=== PATIENT | male | born 1955 | race Caucasian/White ===

== ENCOUNTER 2020-01-20 14:34 | Inpatient (IN) ==
[2020-01-20] MEDS ORDERED: ONDANSETRON INJ 2 MG/ML 2 ML VIAL IV PRN (15:18)
[2020-01-20] MEDS ORDERED: PATIENT'S HEIGHT AND/OR WEIGHT NEEDED SCH (15:30)
[2020-01-20 15:49] LABS: Basophils # (auto) 0.04 K/uL (0-0.2); Basophils % (auto) 0.6 %; Eosinophils # (auto) 0.08 K/uL (0-0.5); Eosinophils % (auto) 1.2 %; Hematocrit (blood only) 36.6 % (42-52); Immature Granulocytes # (auto) 0.01 K/uL (0.00-0.02); Immature Granulocytes % (auto) 0.2 %; Lymphocytes # (auto) 1.39 K/uL (1.2-3.4); Lymphocytes % (auto) 21.3 %; Mean Corpuscular Hemoglobin 31.7 pg (25-34); Mean Corpuscular Volume 96.8 fL (80-100); Mean Platelet Volume 10.2 fL (7.4-10.4); Monocytes # (auto) 0.55 K/uL (0.11-0.59); Monocytes % (auto) 8.4 %; Neutrophils # (auto) 4.45 K/uL (1.4-6.5); Neutrophils % (auto) 68.3 %; Platelet Count 224 K/uL (130-400); RDW Coefficient of Variation 14.5 % (11.5-14.5); RDW Standard Deviation 50.8 fL (36.4-46.3); Red Blood Count 3.78 M/uL (4.7-6.1); White Blood Count 6.52 K/uL (4.8-10.8)
[2020-01-20 15:50] LABS: Mean Corpuscular Hgb Conc 32.8 g/dL (32-36)
[2020-01-20 16:01] LABS: Partial Thromboplastin Ratio 0.8; Partial Thromboplastin Time 23.7 Seconds (21.0-31.0); Prothrombin Time 10.9 Seconds (9.0-12.0)
[2020-01-20 16:09] LABS: Alanine Aminotransferase 47 U/L (12-78); Aspartate Aminotransferase 49 U/L (15-37); BUN Creatinine Ratio 18.1 (10-20); Bilirubin Direct 0.2 mg/dl (0-0.2); Blood Urea Nitrogen 19 mg/dl (7-18); Calcium 9.4 mg/dl (8.5-10.1); Carbon Dioxide 24 mmol/L (21-32); Chloride 107 mmol/L (98-107); Est GFR (African American) 87.9; Est GFR (Non-African American) 75.9; Glucose 114 mg/dl (70-99); Potassium 4.5 mmol/L (3.5-5.1); Sodium 137 mmol/L (136-145)
[2020-01-20 16:12] LABS: Alkaline Phosphatase 92 U/L (45-117); Bilirubin,Total 0.7 mg/dl (0.2-1); Total Protein 7.3 gm/dl (6.4-8.2)
[2020-01-20] MEDS ORDERED: PNEUMOCOCCAL ADMINISTRATION CHARGE ONE (16:26)
[2020-01-20] MEDS ORDERED: PNEUMOCOCCAL POLYSACCHARIDES 25 MCG/0.5 ML VIAL/SYR IM ONE (16:26)
--- NOTE | 2020-01-20 17:35 | History & Physical Report ---
Date of Service January 20, 2020 Assessment & Plan (1) Abdominal lymphadenopathy: As discussed with Dr Peacock - CT C/A/P with IV contrast, possible need for biopsy as inpatient Unless anything emergent on this will defer further discussions to Dr Peacock in AM (2) Scrotal swelling: As discussed with Dr Peacock - recommended US testes to confirm edema and r/o alterative localized pathology. (3) Hypertension: Continue losartan 100mg daily, carvedilol 25mg PO daily, amlodipine 5mg PO daily (4) Ascending aortic aneurysm: Noted to be stable on scan in Sep as per patient (5) DVT prophylaxis: Lovenox 40mg SQ daily Admission and Anticipated Discharge Date Admission Date: January 20, 2020 History of Present Illness Chief Complaint: Direct admission for scrotal swelling Primary Care Provider: JAYCE Reece is a 64 year old male who presents as a direct admission from oncology clinic due to scrotal swelling and abdominal lymphadenopathy. The patient notes a 4 week history of change of bowel habit and abdominal cramps followed by 4 day history of scrotal and penile swelling without pain or change in urine frequency, nocturia, hematuria or dysuria. He had an outpatient CT which showed an enlarged abdominal mass ?lymph node (results not available at time of admission) and was referred to Dr Peacock for further management. Regarding his scrotal swelling he was seen in the ER on and since he already had a follow up with Dr Peacock at that time was just advised to follow up as previously planned. He followed up with Dr Peacock in clinic today and recommended admission for further workup. Patient otherwise feels ok but is very anxious. No fevers, chills, weight loss. Allergies Allergy/AdvReac Type Severity Reaction Status Date / Time No Known Allergies Allergy Unverified 01/16/20 13:19 Home Medications Home Medications Medication Instructions Recorded Confirmed Type amlodipine 5 mg PO DAILY 01/16/20 01/20/20 History carvedilol 25 mg PO DAILY 01/16/20 01/20/20 History ferrous sulfate [iron] 325 mg PO DAILY 01/16/20 01/20/20 History bmrht-tf-7-cqk-ano-idujnku-ast 1 cap PO DAILY 01/16/20 01/20/20 History [MegaRed [place]-3 Krill Oil] losartan 100 mg PO DAILY 01/16/20 01/20/20 History fcpxsgbblvuv-febfecud-cqcbhd 1 tab PO DAILY 01/16/20 01/20/20 History [Multivitamin 50 Plus] naproxen sodium [Aleve] 220 mg PO Q12H PRN 01/16/20 01/20/20 History Past Med/Surg History Medical History (Updated 01/20/20 @ 22:12 by Wolfgang Carney MD) Ascending aortic aneurysm Hypertension Surgical History (Updated 01/20/20 @ 16:06 by Alicia Lucero RN) History of total hip arthroplasty Right hip Family History (Updated 01/20/20 @ 16:07 by Alicia Lucero RN) Other No known health problems Social History Preferred Language: Ukrainian 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 Ability: Effective Seconds Inspector Required: No Beliefs That Will Affect Care: None Current Living Situation: Spouse Other Information That Helps Us Care for You: No Feels Safe at Home: Yes Safety Concerns: Feels Safe At This Time Smoking Status: Never smoker Do You Dip or Chew Tobacco: Yes ; Tobacco Cessation Education Requested by Patient: No Hx Alcohol Use: Yes Alcohol type: beer and hard liquor Hx Substance Use: Yes substance use type: marijuana Last Used Substance: Days (ago) Last Used Substance Other:: a week ago Review of Systems Review of Systems: All systems reviewed & are unremarkable except as noted in HPI & below Physical Exam Constitutional: WD/WN, vitals as above Eyes: PERRL, conjunctivae normal, anicteric sclerae ENMT: external ear and nose normal, oropharynx normal Neck: trachea midline, no thyromegaly Respiratory: normal respiratory effort, lungs clear to auscultation Cardiovascular: RRR, no murmur, no edema Gastrointestinal (Abdomen): normal bowel sounds, soft, nontender, no hepatosplenomegaly Musculoskeletal: no cyanosis or clubbing, extremities motor strength 5/5 Skin: no rashes, warm and dry Neurologic: moves all extremities and awake; no focal motor deficits and not confused Psychiatric: Orientation: alert and oriented x 3 Affect: + anxious affect Mood: + anxious mood Genitourinary: + scrotum abnormality (bilateral enlarged edematous scrotum) an d + edematous penis; no CVA tenderness Lymphatic: + inguinal lymphadenopathy; no cervical lymphadenopathy and no axillary lymphadenopathy Results & Data Results & Data ([facility]) Vital Signs (Past 12 Hours) Vital Signs Temp Pulse Resp BP Pulse Ox 01/20/20 15:41 36.5 C 73 16 153/94 H 96 Code Status & VTE Plan Code Status Full VTE Prophylaxis Plan VTE Prophylaxis will be ordered: Yes PG Care Time/CCT Total # of Minutes Spent Total Time Spent with Patient: Total time spent is greater than 50% in coordination of care (as documented) at patient's floor/unit and/or counseling p atient: Coding Level of Care Code 40747 Initial Inpt Care Lvl 2 Diagnoses Abdominal lymphadenopathy R59.0 Scrotal swelling N50.89 Hypertension I10 Ascending aortic aneurysm I71.2 DVT prophylaxis Z29.9
[2020-01-20] MEDS ORDERED: IOVERSOL 100ml IV PRN (17:49)
--- NOTE | 2020-01-20 18:24 | CT Scan Report ---
CHEST CT WITH CONTRAST, ABDOMEN AND PELVIS CT WITH CONTRAST CT DOSE: HISTORY: lymphadenopathy TECHNIQUE: Multiaxial CT images of the chest, abdomen, and pelvis were performed following the intrav enous administration of contrast. A dose lowering technique was utilized adhering to the principles of ALARA. COMPARISON: None. FINDINGS: Chest CT: There are prominent left axillary, anterior mediastinal, and bilateral hilar lymph nodes. T here is extensive posterior mediastinal lymphadenopathy seen predominantly within the periaortic loca tion. Dominant distal periaortic lymph node measures 2.6 cm. There is a large hiatus hernia containin g the majority of the stomach. Trace left pleural effusion. There is left-sided paravertebral lymphad enopathy. The heart is normal in size. Aneurysmal dilatation of the aortic root/ascending thoracic ao rta measuring up to 5 cm in diameter. No evidence for an aortic dissection. The central pulmonary art eries are patent. No suspicious lytic are blastic osseous lesions. No pneumothorax. The central airwa ys are patent. Linear densities within the base of the lower lobes, left greater the right. This favo rs subsegmental atelectasis. Abdomen/pelvis: The liver, gallbladder, pancreas, spleen, and adrenal glands are unremarkable. There is bulky retroperitoneal lymphadenopathy which extends into the mediastinum. This encases and anterio rly displaces the abdominal aorta. This appears to compress the IVC. This measures up to 12 x 10 cm i n diameter. There is mild bilateral pelvic sidewall lymphadenopathy. Mid pelvic lymphadenopathy with the largest lymph node measuring 8 x 4 cm. The bladder is not well-distended which likely accounts fo r the mild wall thickening. There is mild right and moderate left process likely secondary to obstruc tion from the bulky retroperitoneal lymphadenopathy. There is mild lower anterior abdominal wall subc utaneous edema mild mesenteric lymphadenopathy is also noted. There is also scrotal edema which is pa rtially visualized. Colonic diverticulosis. No evidence for diverticulitis. No bowel wall thickening or obstruction. Normal appendix. There is a right total hip arthroplasty. Sclerotic focus within the right posterior iliac bone favors a bone island. No suspicious lytic are blastic osseous lesions. IMPRESSION: 1. Extensive lymphadenopathy throughout the chest, abdomen, or pelvis as described above. This could represent lymphoma or metastatic disease. 2. Mild right and moderate left hydronephrosis secondary to obstruction of the ureters from the bulky retroperitoneal lymphadenopathy. 3. Large hiatus hernia. 4. Trace left pleural effusion. 5. Aneurysmal dilatation of the aortic root/ascending thoracic aorta measuring up to 5 cm. ACT 112: Positive. There are findings on this exam that require communication between the performing entity and the patient following Patient Test Result Information Act ([place] Act 112) guidelines. Electronically signed by: Cleveland Lui M.D. 01/20/2020 6:23 PM
--- NOTE | 2020-01-20 18:27 | Ultrasound Report ---
TESTICULAR ULTRASOUND HISTORY: bilateral scrotal swelling ?edema only COMPARISON: Abdomen and pelvis CT 01/20/2020. FINDINGS: Right testis: 4.8 x 3.6 x 3.8 cm. There are no intratesticular masses. Normal color flow. Moderate hy drocele. The epididymis is unremarkable. Left testis: 4.2 x 2.6 x 4.1 cm. There are no intratesticular masses. Normal color flow. Moderate hyd rocele containing a septation. The epididymis demonstrates a small cyst at the head. Miscellaneous: Moderate scrotal edema. IMPRESSION: 1. Normal bilateral testes. 2. Moderate scrotal edema with moderate bilateral hydroceles. ACT 112: Negative or not required by law. Electronically signed by: Cleveland Lui M.D. 01/20/2020 6:25 PM
[2020-01-20] MEDS ORDERED: PNEUMOCOCCAL Polysaccharide Vaccine 25mcg/0.5mL vial/Syr IM ONE (19:15)
[2020-01-20] MEDS ORDERED: ENOXAPARIN INJ 40 MG/0.4 ML SYR SQ SCH (21:00)
[2020-01-21] MEDS: LOSARTAN POTASSIUM 50 MG TAB PO SCH (07:45)
[2020-01-21] MEDS: carvediloL 25 MG TAB PO SCH (07:45)
[2020-01-21] MEDS: FERROUS SULFATE 325 MG TAB PO SCH (07:45)
[2020-01-21] MEDS: AMLODIPINE BESYLATE 5 MG TAB PO SCH (07:46)
--- NOTE | 2020-01-21 08:50 | Consultation Report ---
DATE OF CONSULTATION: 01/21/2020 REASON FOR CONSULTATION: Bulky abdominal lymphadenopathy, etiology unclear. HISTORY OF PRESENT ILLNESS: Lamberto is a very pleasant 64-year-old gentleman who actually presented to the [facility] yesterday for consultation regarding abnormal radiographic findings, specifically enlarging abdominal mass. Over the past 3-4 weeks, he had been experiencing increased abdominal cramps, pressure, early satiety and constipation. He denies fevers, chills or sweats, does not report a significant weight loss. He finally presented to his family physician a couple of weeks ago, performed preliminary CT scan of the abdomen and pelvis which clearly demonstrated relatively large retroperitoneal lymph node conglomerate. Shortly after scan he began to notice increased swelling of his lower extremities and scrotum. Thus, when he presented yesterday, he was in a fair amount of discomfort and felt it was prudent to proceed with admission for expedient workup and diagnosis. A CT scan of the chest, abdomen and pelvis was repeated in our facility. Radiologist identified extensive lymphadenopathy throughout the chest, abdomen and pelvis, thought to be consistent with a lymphoproliferative process, mild right and moderate left hydronephrosis, secondary to obstruction of the ureters from bulky retroperitoneal lymphadenopathy. Interestingly, aneurysm of the aortic root measuring up to 5 cm. The most significant lymph node bulk is seen in the retroperitoneum which extends into the mediastinum encases anterior displaces the abdominal aorta, appears to compress the IVC, which is not surprising I suspect resulting in scrotal and lower extremity swelling. This mass lesion measures 12 x 10 cm. The largest mid pelvic adenopathy measures 8 x 4 cm. PAST MEDICAL HISTORY: Significant for hypertension, ascending aortic aneurysm. PAST SURGICAL HISTORY: Status post total right hip arthroplasty. MEDICATIONS: Prior to admission include amlodipine 5 mg p.o. daily, carvedilol 25 mg p.o. daily, ferrous sulfate 325 mg p.o. daily, losartan 100 mg p.o. daily, multivitamin 1 tablet p.o. daily, Aleve 220 mg p.o. 12 hours p.r.n. ALLERGIES: No known drug allergies. 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 Positive for a beer and hard liquor. He also admits to marijuana use. FAMILY HISTORY: No family history of lymphoproliferative disease or neoplasia. REVIEW OF SYSTEMS: CONSTITUTIONAL: As per HPI, most notable for increased abdominal and upper pelvic pain and swelling of the scrotum, lower extremity. Negative for fevers, chills or night sweats. SKIN: No rashes or lesions. No history of dermatoses. HEENT: He denies headaches, lightheadedness or dizziness. No acute visual or hearing deficits. No sinus symptoms, sore throat or dysphagia. LYMPH: Positive for radiographically evident bulky adenopathy. CARDIAC: Negative for coronary artery disease, has a relatively large aortic root aneurysm, 5 cm are noted on CT of chest, no angina or palpitations. PULMONARY: Negative for COPD. No shortness of breath, dyspnea or orthopnea. No cough or hemoptysis. GASTROINTESTINAL: Negative for abdominal pain, nausea, vomiting, diarrhea, constipation, hematochezia or melena stools. GENITOURINARY: No hematuria, dysuria, urinary incontinence. PSYCHIATRIC: Negative for anxiety, depression or psychoses. ENDOCRINE: Negative for diabetes or thyroid disease. NEUROLOGIC: Negative for seizure, stroke, or migraine headache. HEMATOLOGIC: Positive for borderline normocytic normochromic anemia. PHYSICAL EXAMINATION: GENERAL: A very pleasant 64-year-old gentleman, awake, alert and appropriate, in no acute distress. VITAL SIGNS: Temperature 36.8, pulse 77, respiratory rate 20, blood pressure 128/80. SKIN: Warm, dry, noncyanotic without petechia, rash or ecchymosis. HEENT: Head is atraumatic, normocephalic. Eyes: PERRLA, EOMI. Sclerae nonicteric. No conjunctival injection. Nares are patent without rhinorrhea or discharge. Throat, no buccal lesions or ulcerations. Dentation in good repair. NECK: Supple without JVD or thyromegaly. LYMPH: No cervical, supraclavicular and I tried to palpate the left axillary node seen on CT scan, could not discern. HEART: Regular rate and rhythm. No clicks, rubs, murmurs or gallops. LUNGS: Clear to auscultation bilaterally. ABDOMEN: Soft, nontender, nondistended. Bowel sounds hypoactive. No rigidity or guarding, marked scrotal swelling. EXTREMITIES: 1+ peripheral edema bilateral lower extremities. Pulses and strength are otherwise equal. NEUROLOGICALLY: He is awake, alert and oriented x3. Cranial nerves grossly intact. LABORATORY DATA: WBC count 6520, hemoglobin 12, platelet count 224,000. PT 10.9 seconds, PTT 23.7 seconds. Sodium 137, potassium 4.5, chloride 107, carbon dioxide 24, creatinine 1.03, BUN 19, glucose 114, calcium 9.4, total bilirubin 0.7, direct bilirubin 0.2, AST mildly elevated at 49, ALT 47, albumin 4.0. IMPRESSION: 1. Diffuse/bulky abdominal lymphadenopathy (retroperitoneum). 2. Subacute onset of scrotal swelling. 3. Ascending aortic aneurysm. 4. Hypertension. PLAN: In summary, Mr. Reece is a pleasant 64-year-old gentleman who originally presented to [facility] yesterday with the above radiographic findings. Because of the COVID outbreak workup has been somewhat delayed and thus the rationale to hospitalize him. CT scan of the abdomen and pelvis repeated on admission shows bulky retroperitoneal lymphadenopathy compressing both the aorta and the inferior vena cava which I suspect resulted in scrotal and lower extremity swelling. Thus, we will ask general surgery to pursue tissue diagnosis expediently. I would also ask MediPort be placed in anticipation of chemotherapy to come once diagnosis is confirmed. Obviously, the most likely diagnosis is an underlying lymphoproliferative process. With significant bulky disease risk of tumor lysis is high. This gentleman is otherwise healthy and a good candidate to receive induction chemotherapy. If the preliminary diagnosis points to a lymphoproliferative process, may consider starting him on empiric corticosteroids in essence to reduce the bulkiness of his disease while he awaits chemotherapy. I have nothing further to add and will continue to follow him periodically during hospitalization. Thank you very much for assisting me in the care of this very pleasant gentleman.
--- NOTE | 2020-01-21 11:48 | Surgery Consultation ---
Date of Consultation January 21, 2020 Assessment & Plan (1) Abdominal lymphadenopathy: pt is a 64 year-old male who was admitted to hospital for lymphadenopathy. IMP: chest and abdominal lymphadenopathy Plan, I recommend to do laparoscopic biopsy abdominal lymph node, possible open, D/W benefits, risks and alternatives of the surgery, the risks - infection, bleeding, injury bowel, pt understood, he agrees with the surgery, I answered all questions, I will do port insertion once confirm diagnosis. History of Present Illness Attending Physician: Angel Jean MD History of Present Illness Chief Complaint: Direct admission for scrotal swelling Primary Care Provider: JAYCE Reece is a 64 year old male who presents as a direct admission from oncology clinic due to scrotal swelling and abdominal lymphadenopathy. The patient notes a 4 week history of change of bowel habit and abdominal cramps followed by 4 day history of scrotal and penile swelling without pain or change in urine frequency, nocturia, hematuria or dysuria. He had an outpatient CT which showed an enlarged abdominal mass ?lymph node (results not available at time of admission) and was referred to Dr Peacock for further management. Regarding his scrotal swelling he was seen in the ER on and since he already had a follow up with Dr Peacock at that time was just advised to follow up as previously planned. He followed up with Dr Peacock in clinic today and recommended admission for further workup. Patient otherwise feels ok but is very anxious. No fevers, chills, weight loss. I ( Santi Mac MD ) got a consult biopsy abdominal lymphadenopathy. I reviewed pt's H/P, labs, CT scan with pt, Allergies Allergy/AdvReac Type Severity Reaction Status Date / Time No Known Allergies Allergy Unverified 01/16/20 13:19 Home Medications Home Medications Medication Instructions Recorded Confirmed Type amlodipine 5 mg PO DAILY 01/16/20 01/20/20 History carvedilol 25 mg PO DAILY 01/16/20 01/20/20 History ferrous sulfate [iron] 325 mg PO DAILY 01/16/20 01/20/20 History hadcc-vg-7-hyu-xpw-ulntvem-ast 1 cap PO DAILY 01/16/20 01/20/20 History [MegaRed [place]-3 Krill Oil] losartan 100 mg PO DAILY 01/16/20 01/20/20 History ootqqszsyzmd-moqeohvu-rggehp 1 tab PO DAILY 01/16/20 01/20/20 History [Multivitamin 50 Plus] naproxen sodium [Aleve] 220 mg PO Q12H PRN 01/16/20 01/20/20 History Past Med/Surg History Medical History (Updated 01/20/20 @ 22:12 by Wolfgang Carney MD) Ascending aortic aneurysm Hypertension Surgical History (Updated 01/20/20 @ 16:06 by Alicia Lucero RN) History of total hip arthroplasty Right hip Family History (Updated 01/20/20 @ 16:07 by Alicia Lucero RN) Other No known health problems Social History Preferred Language: Iranian 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 Ability: Effective 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 Beliefs That Will Affect Care: None Current Living Situation: Spouse Other Information That Helps Us Care for You: No Feels Safe at Home: Yes Safety Concerns: Feels Safe At This Time Smoking Status: Never smoker Do You Dip or Chew Tobacco: Yes ; Tobacco Cessation Education Requested by Patient: No Hx Alcohol Use: Yes Alcohol type: beer and hard liquor Hx Substance Use: Yes substance use type: marijuana Last Used Substance: Days (ago) Last Used Substance Other:: a week ago Review of Systems Review of Systems: All systems reviewed & are unremarkable except as noted in HPI & below Allergies Allergy/AdvReac Type Severity Reaction Status Date / Time No Known Allergies Allergy Unverified 01/16/20 13:19 Home Medications Home Medications Medication Instructions Recorded Confirmed Type amlodipine 5 mg PO DAILY 01/16/20 01/20/20 History carvedilol 25 mg PO DAILY 01/16/20 01/20/20 History ferrous sulfate [iron] 325 mg PO DAILY 01/16/20 01/20/20 History xbtcx-sn-5-igu-xva-axlwozq-ast 1 cap PO DAILY 01/16/20 01/20/20 History [MegaRed [place]-3 Krill Oil] losartan 100 mg PO DAILY 01/16/20 01/20/20 History yxnfistuaspn-ullwxjez-hblxla 1 tab PO DAILY 01/16/20 01/20/20 History [Multivitamin 50 Plus] naproxen sodium [Aleve] 220 mg PO Q12H PRN 01/16/20 01/20/20 History Patient History Medical History (Updated 01/20/20 @ 22:12 by Wolfgang Carney MD) Ascending aortic aneurysm Hypertension Surgical History (Updated 01/20/20 @ 16:06 by Alicia Lucero RN) History of total hip arthroplasty Right hip Family History (Updated 01/20/20 @ 16:07 by Alicia Lucero RN) Other No known health problems Social History Preferred Language: Iranian 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 Ability: Effective 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 Beliefs That Will Affect Care: None marital status: Current Living Situation: Spouse Other Information That Helps Us Care for You: No Feels Safe at Home: Yes Safety Concerns: Feels Safe At This Time Smoking Status: Never smoker Do You Dip or Chew Tobacco: Yes ; Tobacco Cessation Education Requested by Patient: No Hx Alcohol Use: Yes Alcohol type: beer and hard liquor Hx Substance Use: Yes substance use type: marijuana Last Used Substance: Days (ago) Last Used Substance Other:: a week ago Review of Systems Review of Systems: All systems reviewed & are unremarkable except as noted in HPI & below Constitutional: as per Subjective / HPI Eyes: as per Subjective / HPI Ear, Nose, Mouth, Throat: as per Subjective / HPI Respiratory: as per Subjective / HPI Cardiovascular: Additional Comments: ascending aortic aneurysm Gastrointestinal: as per Subjective / HPI S/P bilt inguinal hernia repair Genitourinary: + problem reported (scrotal swelling) Musculoskeletal: as per Subjective / HPI Integumentary: as per Subjective / HPI Neurologic: as per Subjective / HPI Psychiatric: as per Subjective / HPI Endocrine: as per Subjective / HPI Hematologic / Lymphatic: as per Subjective / HPI Allergy / Immunological: as per Subjective / HPI Physical Exam Constitutional: WD/WN, vitals as above well developed and well nourished Eyes: PERRL, conjunctivae normal, anicteric sclerae ENMT: external ear and nose normal, oropharynx normal Neck: trachea midline, no thyromegaly Respiratory: normal respiratory effort, lungs clear to auscultation normal respiratory effort Cardiovascular: RRR, no murmur, no edema Rate/Rhythm: regular rate and regular rhythm Gastrointestinal (Abdomen): normal bowel sounds, soft, nontender, no hepatosplenomegaly Percussion/Palpation: abdomen soft Musculoskeletal: no cyanosis or clubbing, extremities motor strength 5/5 Skin: no rashes, warm and dry Neurologic: patellar DTR's 2+ bilat, sensation intact Psychiatric: Orientation: alert and oriented x 3 Lymphatic: no palpable mass on bilt axillary and inguinal areas, Results & Data Vital Signs (Past 12 Hours) Vital Signs Temp Pulse Resp BP Pulse Ox 01/21/20 04:00 36.8 C 77 20 128/80 94 Laboratory Results Abnormal lab results 01/20/20 01/20/20 Range/Units 15:35 15:35 RBC 3.78 L (4.7-6.1) M/uL Hgb 12.0 L (14.0-18.0) g/dL Hct 36.6 L (42-52) % RDW Std Deviation 50.8 H (36.4-46.3) fL BUN 19 H (7-18) mg/dl Glucose 114 H (70-99) mg/dl AST 49 H (15-37) U/L Diagnostic Findings CHEST CT WITH CONTRAST, ABDOMEN AND PELVIS CT WITH CONTRAST CT DOSE: HISTORY: lymphadenopathy TECHNIQUE: Multiaxial CT images of the chest, abdomen, and pelvis were performed following the intravenous administration of contrast. A dose lowering technique was utilized adhering to the principles of ALARA. COMPARISON: None. FINDINGS: Chest CT: There are prominent left axillary, anterior mediastinal, and bilateral hilar lymph nodes. There is extensive posterior mediastinal lymphadenopathy seen predominantly within the periaortic location. Dominant distal periaortic lymph node measures 2.6 cm. There is a large hiatus hernia containing the majority of the stomach. Trace left pleural effusion. There is left-sided paravertebral lymphadenopathy. The heart is normal in size. Aneurysmal dilatation of the aortic root/ascending thoracic aorta measuring up to 5 cm in diameter. No evidence for an aortic dissection. The central pulmonary arteries are patent. No suspicious lytic are blastic osseous lesions. No pneumothorax. The central airways are patent. Linear densities within the base of the lower lobes, left greater the right. This favors subsegmental atelectasis. Abdomen/pelvis: The liver, gallbladder, pancreas, spleen, and adrenal glands are unremarkable. There is bulky retroperitoneal lymphadenopathy which extends into the mediastinum. This encases and anteriorly displaces the abdominal aorta. This appears to compress the IVC. This measures up to 12 x 10 cm in diameter. There is mild bilateral pelvic sidewall lymphadenopathy. Mid pelvic lymphadenopathy with the largest lymph node measuring 8 x 4 cm. The bladder is not well-distended which likely accounts for the mild wall thickening. There is mild right and moderate left process likely secondary to obstruction from the bulky retroperitoneal lymphadenopathy. There is mild lower anterior abdominal wall subcutaneous edema mild mesenteric lymphadenopathy is also noted. There is also scrotal edema which is partially visualized. Colonic diverticulosis. No evidence for diverticulitis. No bowel wall thickening or obstruction. Normal appendix. There is a right total hip arthroplasty. Sclerotic focus within the right posterior iliac bone favors a bone island. No suspicious lytic are blastic osseous lesions. IMPRESSION: 1. Extensive lymphadenopathy throughout the chest, abdomen, or pelvis as described above. This could represent lymphoma or metastatic disease. 2. Mild right and moderate left hydronephrosis secondary to obstruction of the ureters from the bulky retroperitoneal lymphadenopathy. 3. Large hiatus hernia. 4. Trace left pleural effusion. 5. Aneurysmal dilatation of the aortic root/ascending thoracic aorta measuring up to [address] WITH CONTRAST, ABDOMEN AND PELVIS CT WITH CONTRAST CT DOSE: HISTORY: lymphadenopathy TECHNIQUE: Multiaxial CT images of the chest, abdomen, and pelvis were performed following the intravenous administration of contrast. A dose lowering technique was utilized adhering to the principles of ALARA. COMPARISON: None. FINDINGS: Chest CT: There are prominent left axillary, anterior mediastinal, and bilateral hilar lymph nodes. There is extensive posterior mediastinal lymphadenopathy seen predominantly within the periaortic location. Dominant distal periaortic lymph node measures 2.6 cm. There is a large hiatus hernia containing the majority of the stomach. Trace left pleural effusion. There is left-sided paravertebral lymphadenopathy. The heart is normal in size. Aneurysmal dilatation of the aortic root/ascending thoracic aorta measuring up to 5 cm in diameter. No evidence for an aortic dissection. The central pulmonary arteries are patent. No suspicious lytic are blastic osseous lesions. No pneumothorax. The central airways are patent. Linear densities within the base of the lower lobes, left greater the right. This favors subsegmental atelectasis. Abdomen/pelvis: The liver, gallbladder, pancreas, spleen, and adrenal glands are unremarkable. There is bulky retroperitoneal lymphadenopathy which extends into the mediastinum. This encases and anteriorly displaces the abdominal aorta. This appears to compress the IVC. This measures up to 12 x 10 cm in diameter. There is mild bilateral pelvic sidewall lymphadenopathy. Mid pelvic lymphadenopathy with the largest lymph node measuring 8 x 4 cm. The bladder is not well-distended which likely accounts for the mild wall thickening. There is mild right and moderate left process likely secondary to obstruction from the bulky retroperitoneal lymphadenopathy. There is mild lower anterior abdominal wall subcutaneous edema mild mesenteric lymphadenopathy is also noted. There is also scrotal edema which is partially visualized. Colonic diverticulosis. No evidence for diverticulitis. No bowel wall thickening or obstruction. Normal appendix. There is a right total hip arthroplasty. Sclerotic focus within the right posterior iliac bone favors a bone island. No suspicious lytic are blastic osseous lesions.
[2020-01-21] MEDS: POLYETHYLENE (MIRALAX) 17 GM PACK PO PRN (12:13)
[2020-01-21] MEDS: LORazepam 0.5 MG TAB PO PRN ×2 (12:13→20:17)
--- NOTE | 2020-01-21 15:23 | Urology Consultation ---
Date of Consultation January 21, 2020 Assessment & Plan (1) Scrotal swelling: elevate scrotum (2) Hydronephrosis: call for severe flank pain or renal failure History of Present Illness Attending Physician: Angel Jean MD History of Present Illness 64 yo male w hx of r inguinal swelling who saw family doctor and he had a ct that showed a large abdominal adenopathy w scrotal swelling and mild bilateral hydro . Pt with nl creatinine and no difficulty voiding. he developed scrotal swelling which is better today . No pain . Surgery pending for tissue biopsy in am . Psa reported nl this year per patient . Prostate feels nl on exam today . Scrotal sonogram showed edema of scrotal wall and small hydroceles w nl testes . Reassured pt swelling secondary to abdominal mass and no indication for stents unless creatinine rises or he develops flank pain. Allergies Allergy/AdvReac Type Severity Reaction Status Date / Time No Known Allergies Allergy Unverified 01/16/20 13:19 Home Medications Home Medications Medication Instructions Recorded Confirmed Type amlodipine 5 mg PO DAILY 01/16/20 01/20/20 History carvedilol 25 mg PO DAILY 01/16/20 01/20/20 History ferrous sulfate [iron] 325 mg PO DAILY 01/16/20 01/20/20 History szaei-ir-0-wwt-bio-ybclacb-ast 1 cap PO DAILY 01/16/20 01/20/20 History [MegaRed [place]-3 Krill Oil] losartan 100 mg PO DAILY 01/16/20 01/20/20 History cptexcembsnd-ulnyrern-hgyqgn 1 tab PO DAILY 01/16/20 01/20/20 History [Multivitamin 50 Plus] naproxen sodium [Aleve] 220 mg PO Q12H PRN 01/16/20 01/20/20 History Patient History Medical History (Updated 01/21/20 @ 15:22 by Andrez Phelps MD) Ascending aortic aneurysm Hypertension Surgical History (Updated 01/20/20 @ 16:06 by Alicia Lucero RN) History of total hip arthroplasty Right hip Family History (Updated 01/20/20 @ 16:07 by Alicia Lucero RN) Other No known health problems Social History Preferred Language: [place] 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 Ability: Effective 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 Beliefs That Will Affect Care: None marital status: Current Living Situation: Spouse Other Information That Helps Us Care for You: No Feels Safe at Home: Yes Safety Concerns: Feels Safe At This Time Smoking Status: Never smoker Do You Dip or Chew Tobacco: Yes ; Tobacco Cessation Education Requested by Patient: No Hx Alcohol Use: Yes Alcohol type: beer and hard liquor Hx Substance Use: Yes substance use type: marijuana Last Used Substance: Days (ago) Last Used Substance Other:: a week ago Review of Systems Constitutional: as per Subjective / HPI Eyes: as per Subjective / HPI Ear, Nose, Mouth, Throat: as per Subjective / HPI Respiratory: as per Subjective / HPI Cardiovascular: Additional Comments: ascending aortic aneurysm Gastrointestinal: as per Subjective / HPI S/P bilt inguinal hernia repair Genitourinary: + problem reported (scrotal swelling) Musculoskeletal: as per Subjective / HPI Integumentary: as per Subjective / HPI Neurologic: as per Subjective / HPI Psychiatric: as per Subjective / HPI Endocrine: as per Subjective / HPI Hematologic / Lymphatic: as per Subjective / HPI Allergy / Immunological: as per Subjective / HPI Physical Exam Constitutional: WD/WN, vitals as above well developed and well nourished Eyes: PERRL, conjunctivae normal, anicteric sclerae ENMT: external ear and nose normal, oropharynx normal Neck: trachea midline, no thyromegaly Genitourinary: + scrotum abnormality (bilateral enlarged edematous scrotum) and + edematous penis; no CVA tenderness Lymphatic: + inguinal lymphadenopathy; no cervical lymphadenopathy and no axillary lymphadenopathy Results & Data Vital Signs (Past 12 Hours) Vital Signs Temp Pulse Resp BP Pulse Ox 01/21/20 12:13 36.8 C 72 18 148/90 H 92 01/21/20 04:00 36.8 C 77 20 128/80 94 PG Care Time/CCT Total # of Minutes Spent Total Time Spent with Patient: Total time spent is greater than 50% in coordination of care (as documented) at patient's floor/unit and/or counseling patient: Coding Level of Care Code 73250 Inpt Consult Level 2 Diagnoses Scrotal swelling N50.89 Hydronephrosis N13.30
--- NOTE | 2020-01-21 16:32 | Anesthesiology Consultation ---
Date of Service January 21, 2020 Assessment & Plan (1) Encounter for pre-operative examination: Chart Review Chart Review: Acceptable Risk for Surgery and Patient NOT seen in Pre Admission Testing Will order ECG. Plan for GETA +/- arterial line. Consults Requested none History Surgery Operation Date: 01/22/20 09:40 Proposed Procedures p Laparoscopic Abdominal Lymph Node Biopsy - Santi Mac MD Height/Weight Height: 6 ft Weight: 93.8 kg Allergies Allergy/AdvReac Type Severity Reaction Status Date / Time No Known Allergies Allergy Unverified 01/16/20 13:19 Medications Home Medications Medication Instructions Recorded Confirmed Last Taken amlodipine 5 mg PO DAILY 01/16/20 01/20/20 01/20/20 carvedilol 25 mg PO DAILY 01/16/20 01/20/20 01/20/20 ferrous sulfate [iron] 325 mg PO DAILY 01/16/20 01/20/20 01/20/20 swtja-hs-7-cdo-paj-fnpprgw-ast 1 cap PO DAILY 01/16/20 01/20/20 01/20/20 [MegaRed [place]-3 Krill Oil] losartan 100 mg PO DAILY 01/16/20 01/20/20 01/20/20 qfgzbqiztiiv-hkhyfmhl-ezpata 1 tab PO DAILY 01/16/20 01/20/20 01/20/20 [Multivitamin 50 Plus] naproxen sodium [Aleve] 220 mg PO Q12H PRN 01/16/20 01/20/20 1 Day Ago ~01/19/20 Active Medications Generic Name Dose Route Start Last Admin Trade Name Freq PRN Reason Stop Dose Admin Amlodipine Besylate 5 mg 01/21/20 09:00 01/21/20 07:46 Norvasc PO 02/20/20 08:59 5 mg DAILY KATLYN Administration Carvedilol 25 mg 01/21/20 09:00 01/21/20 07:45 Coreg PO 02/20/20 08:59 25 mg DAILY KATLYN Administration Enoxaparin Sodium 40 mg 01/20/20 21:00 01/20/20 21:07 Lovenox SQ 02/19/20 20:59 40 mg Q24H KATLYN Administration Ferrous Sulfate 325 mg 01/21/20 09:00 01/21/20 07:45 Feosol PO 02/20/20 08:59 325 mg DAILY KATLYN Administration Ioversol 94 ml 01/20/20 17:49 01/20/20 17:50 Optiray 320 100ml IV 01/24/20 17:48 94 ml ONCE PRN Administration Interaction Checking Lorazepam 0.5 mg 01/21/20 11:01 01/21/20 12:13 Ativan PO 02/20/20 11:00 0.5 mg TID PRN Administration Anxiety Losartan Potassium 100 mg 01/21/20 09:00 01/21/20 07:45 Cozaar PO 02/20/20 08:59 100 mg DAILY KATLYN Administration Ondansetron HCl 4 mg 01/20/20 15:18 01/20/20 18:49 Zofran IV 02/19/20 15:17 4 mg Q6H PRN Administration Nausea Polyethylene Glycol 17 gm 01/20/20 15:18 01/21/20 12:13 Miralax Powder Packet PO 02/19/20 15:17 17 gm DAILY PRN Administration Constipation Past Medical History Medical History (Updated 01/21/20 @ 16:36 by Hollis Herman MD) Abdominal lymphadenopathy (Inactive) Anemia (Inactive) Ascending aortic aneurysm Hydronephrosis Hypertension He does have a history of a thoracic aortic aneurysm and had a CT scan in August of this year which showed no change. Past Family History Family History Other No known health problems Past Surgical History Surgical History History of total hip arthroplasty Right hip Social History Smoking Status: Never smoker Do You Dip or Chew Tobacco: Yes Hx Alcohol Use: Yes Alcohol type: beer and hard liquor alcohol intake frequency: 3 or more drinks per day Alcohol Intake Frequency Comment: 3 shots of bourbon and a beer a day Hx Substance Use: Yes substance use type: marijuana Last Used Substance: Days (ago) Last Used Substance Other:: a week ago Physical Exam Vital Signs Last Vital Signs Temp 36.6 C 01/21/20 15:00 Pulse 74 01/21/20 15:00 Resp 18 01/21/20 15:00 BP 127/73 01/21/20 15:00 Pulse Ox 93 01/21/20 15:00 Testing Laboratory Results 01/20/20 15:35 01/20/20 15:35 PT 10.9 Seconds (9.0-12.0) 01/20/20 15:35 INR 1.0 (0.9-1.1) 01/20/20 15:35 APTT 23.7 Seconds (21.0-31.0) 01/20/20 15:35 Other Testing 01/20/2020: CHEST CT WITH CONTRAST, ABDOMEN AND PELVIS CT WITH CONTRAST CT DOSE: HISTORY: lymphadenopathy TECHNIQUE: Multiaxial CT images of the chest, abdomen, and pelvis were performed following the intravenous administration of contrast. A dose lowering technique was utilized adhering to the principles of ALARA. COMPARISON: None. FINDINGS: Chest CT: There are prominent left axillary, anterior mediastinal, and bilateral hilar lymph nodes. There is extensive posterior mediastinal lymphadenopathy seen predominantly within the periaortic location. Dominant distal periaortic lymph node measures 2.6 cm. There is a large hiatus hernia containing the majority of the stomach. Trace left pleural effusion. There is left-sided paravertebral lymphadenopathy. The heart is normal in size. Aneurysmal dilatation of the aortic root/ascending thoracic aorta measuring up to 5 cm in diameter. No evidence for an aortic dissection. The central pulmonary arteries are patent. No suspicious lytic are blastic osseous lesions. No pneumothorax. The central airways are patent. Linear densities within the base of the lower lobes, left greater the right. This favors subsegmental atelectasis. Abdomen/pelvis: The liver, gallbladder, pancreas, spleen, and adrenal glands are unremarkable. There is bulky retroperitoneal lymphadenopathy which extends into the mediastinum. This encases and anteriorly displaces the abdominal aorta. This appears to compress the IVC. This measures up to 12 x 10 cm in diameter. There is mild bilateral pelvic sidewall lymphadenopathy. Mid pelvic lymphadenopathy with the largest lymph node measuring 8 x 4 cm. The bladder is not well-distended which likely accounts for the mild wall thickening. There is mild right and moderate left process likely secondary to obstruction from the bulky retroperitoneal lymphadenopathy. There is mild lower anterior abdominal wall subcutaneous edema mild mesenteric lymphadenopathy is also noted. There is also scrotal edema which is partially visualized. Colonic diverticulosis. No evidence for diverticulitis. No bowel wall thickening or obstruction. Normal appendix. There is a right total hip arthroplasty. Sclerotic focus within the right posterior iliac bone favors a bone island. No suspicious lytic are blastic osseous lesions. IMPRESSION: 1. Extensive lymphadenopathy throughout the chest, abdomen, or pelvis as described above. This could represent lymphoma or metastatic disease. 2. Mild right and moderate left hydronephrosis secondary to obstruction of the ureters from the bulky retroperitoneal lymphadenopathy. 3. Large hiatus hernia. 4. Trace left pleural effusion. 5. Aneurysmal dilatation of the aortic root/ascending thoracic aorta measuring up to 5 cm.
--- NOTE | 2020-01-21 16:51 | Hospitalist Progress Note ---
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 Discussed with Dr. Peacock on 01/20. - Plan for biopsy of retroperitoneal mass tomorrow with Dr. Mac. - NPO @ midnight (2) Scrotal swelling: For scrotal swelling, urology recommends to elevate scrotum. Will not pursue further intervention unless kidney function changes. (3) Hypertension: BP 130/75 today. - Continue losartan 100mg daily, carvedilol 25mg PO daily, amlodipine 5mg PO daily (4) Anxiety: Patient quite anxious. Will consider starting SSRI in near future. - For now, will just go with PRN Ativan. (5) Ascending aortic aneurysm: Noted to be stable on scan in Sep as per patient (6) DVT prophylaxis: SCDs - Holding heparin for procedure Admission and Anticipated Discharge Date Admission Date: January 20, 2020 Subjective Doing well today. Anxious. Awaiting biopsy for tomorrow. Reports no fevers/chills, chest pain, shortness of breath, abdominal pain, nausea, or vomiting. Physical Exam Constitutional: WD/WN, vitals as above Eyes: EOM intact bilaterally; no conjunctival abnormality ENMT: external ear and nose normal, oropharynx normal Neck: trachea midline, no thyromegaly normal visual inspection Respiratory: normal respiratory effort, lungs clear to auscultation no respiratory distress Cardiovascular: RRR, no murmur, no edema Gastrointestinal (Abdomen): Inspection/Auscultation: abdomen normal to inspection; abdomen not distended Musculoskeletal: no cyanosis or clubbing, extremities motor strength 5/5 Skin: no rashes, warm and dry Neurologic: moves all extremities and awake Psychiatric: Orientation: alert, oriented to person and cooperative Results & Data Results & Data ([facility]) Vital Signs (Past 12 Hours) Vital Signs Temp Pulse Resp BP BP Pulse Ox 01/21/20 15:00 36.6 C 74 18 127/73 93 01/21/20 12:13 36.8 C 72 18 148/90 H 92 PG Care Time/CCT Total # of Minutes Spent Total Time Spent with Patient: Total time spent is greater than 50% in coordination of care (as documented) at patient's floor/unit and/or counseling patient: Coding Level of Care Code 87133 Subseq Hosp Care Lvl 3 Diagnoses Abdominal lymphadenopathy R59.0 Scrotal swelling N50.89 Hypertension I10 Anxiety F41.9 Ascending aortic aneurysm I71.2 DVT prophylaxis Z29.9
[2020-01-22] MEDS: SODIUM CHLORIDE 0.45 % 1,000 ML IV SCH ×2 (04:10→23:10)
[2020-01-22] MEDS ORDERED: CEFAZOLIN 2000MG 2,000 MG/15 ML SYR IV SCH (06:00)
[2020-01-22 08:05] LABS: Hematocrit (blood only) 35.7 % (42-52); Hemoglobin 11.3 g/dL (14.0-18.0); Mean Corpuscular Hemoglobin 30.9 pg (25-34); Mean Corpuscular Hgb Conc 31.7 g/dL (32-36); Mean Corpuscular Volume 97.5 fL (80-100); Mean Platelet Volume 10.4 fL (7.4-10.4); Platelet Count 227 K/uL (130-400); RDW Coefficient of Variation 14.4 % (11.5-14.5); RDW Standard Deviation 51.1 fL (36.4-46.3); Red Blood Count 3.66 M/uL (4.7-6.1); White Blood Count 5.02 K/uL (4.8-10.8)
[2020-01-22 08:20] LABS: INR 1.1 (0.9-1.1); Prothrombin Time 11.3 Seconds (9.0-12.0)
[2020-01-22] MEDS: AMLODIPINE BESYLATE 5 MG TAB PO SCH (08:21)
[2020-01-22] MEDS: carvediloL 25 MG TAB PO SCH (08:21)
[2020-01-22] MEDS: FERROUS SULFATE 325 MG TAB PO SCH (08:21)
[2020-01-22] MEDS: LOSARTAN POTASSIUM 50 MG TAB PO SCH (08:21)
[2020-01-22 08:23] LABS: BUN Creatinine Ratio 13.4 (10-20); Calcium 8.9 mg/dl (8.5-10.1); Creatinine Clr Calc Pharmacy 73.5 ml/min; Est GFR (African American) 81.2; Est GFR (Non-African American) 70.1; Magnesium 2.2 mg/dl (1.8-2.4); Potassium 4.1 mmol/L (3.5-5.1)
[2020-01-22 08:24] LABS: Phosphorus 4.2 mg/dl (2.5-4.9)
--- NOTE | 2020-01-22 09:13 | History & Physical Bridge Note ---
Date of Service January 22, 2020 History & Physical Bridge Note I have examined the patient, reviewed the History & Physical and in the interval since the performance of the History & Physical I have noted the following changes of clinical significance: no changes noted
--- NOTE | 2020-01-22 09:34 | Progress Notes ---
DATE: 01/22/2020 DIAGNOSES: 1. Diffuse/bulky abdominal lymphadenopathy (retroperitoneum). 2. Subacute onset of scrotal swelling. 3. Ascending aortic aneurysm. 4. Hypertension. SUBJECTIVE: The patient was seen and examined at bedside. He is prepping for a diagnostic laparoscopy at 9:30. Appreciate General Surgery and Urology's input. The patient was visited by the urologist and no intervention recommended; however, should be contacted if the patient obstructs his urinary tract. He denies any fevers, chills or sweats. I spoke to the hospitalist regarding disposition after biopsy and Mediport installed. If the patient remains stable, could certainly go home later on today or perhaps tomorrow. OBJECTIVE: GENERAL: A very pleasant 64-year-old gentleman, in no acute distress. VITAL SIGNS: Temperature 36.8, pulse 71, respiratory rate 18, blood pressure 127/81. SKIN: Without rash or lesion. HEENT: Oral mucosa without erythema or ulceration. HEART: Regular rate and rhythm. No clicks, rubs or murmurs. LUNGS: Clear to auscultation bilaterally. ABDOMEN: Soft, nontender, nondistended. EXTREMITIES: No clubbing, cyanosis or edema. NEUROLOGIC: Grossly intact. LABORATORY DATA: WBC count 5020, hemoglobin 11.3, platelet count 227,000. Sodium 139, potassium 4.1, chloride 108, carbon dioxide 25, creatinine 1.10, BUN 15. IMPRESSION: 1. Bulky retroperitoneal lymphadenopathy. 2. Scrotal swelling attributable to lymphatic obstruction. 3. Ascending aortic aneurysm. 4. Hypertension. PLAN: The patient will undergo a diagnostic laparoscopy today. He was seen by Urology and they will continue to follow as needed. Assuming he does well with the procedure, perhaps he can be discharged home later on today or tomorrow. We will make arrangements to have the patient return to the office mid next week, at which time biopsy results should be available and proceed with a therapeutic plan. The patient's most significant clinical issues that of constipation which I believe may be in part due to tumor bulk and near obstruction of his large bowel. Expediting treatment is of paramount importance at this point. I have nothing further to add. We will officially sign off and plan to reconvene with him next week.
--- NOTE | 2020-01-22 10:07 | History & Physical Bridge Note ---
Date of Service January 22, 2020 History & Physical Bridge Note I have examined the patient, reviewed the History & Physical and in the interval since the performance of the History & Physical I have noted the following changes of clinical significance: pt requests to port insertion, I did talk to pt about benefit, risks and alternatives of the surgery, the risks - infection, bleeding, bloody clot, injury lung, pt understood, he agrees with the surgery, I answered all questions,
[2020-01-22] MEDS ORDERED: LIDOCAINE HCL 2% 2 ML VIAL/AMP(20MG/ML) INFIL ONE (10:29)
[2020-01-22] MEDS ORDERED: PROPOFOL IV EMULSION 10 MG/ML 20 ML VIAL IV ONE (10:29)
[2020-01-22] MEDS ORDERED: MIDAZOLAM HCL 1 MG/ML 2ML VIAL ONE (10:29)
[2020-01-22] MEDS ORDERED: ONDANSETRON INJ 2 MG/ML 2 ML VIAL ONE (10:29)
[2020-01-22] MEDS ORDERED: fentaNYL citrate 100 MCG/2 ML VIAL ONE ×2 (10:29→11:42)
[2020-01-22] MEDS ORDERED: SUCCINYLCHOLINE CHLORIDE 20 MG/ML 10 ML VIAL IV ONE (10:29)
[2020-01-22] MEDS ORDERED: BACITRACIN OINT 15 GM TUBE ONE (10:36)
[2020-01-22] MEDS ORDERED: BUPIVACAINE 0.5 % 5 MG/1 ML MPF 30ML VIAL ONE ×2 (10:36→10:59)
[2020-01-22] MEDS ORDERED: LIDOCAINE HCL 1% 20 ML VIAL ONE ×2 (10:36→10:59)
[2020-01-22] MEDS ORDERED: CONRAY 60% 50 ML VIAL ONE (10:37)
[2020-01-22] MEDS ORDERED: HEPARIN 100 UNIT/ML 5ML FLUSH ONE ×3 (10:59→13:16)
[2020-01-22] MEDS ORDERED: ONDANSETRON INJ 2 MG/ML 2 ML VIAL IV PRN (11:20)
[2020-01-22] MEDS ORDERED: ATROPINE SULFATE 0.1 MG/ML 10ML SYR IV PRN (11:20)
[2020-01-22] MEDS ORDERED: ePHEDrine sulfate 50 MG/ML AMP IV PRN (11:20)
[2020-01-22] MEDS ORDERED: HYDROmorphone INJ 2 MG/ML SYR/VIAL IV PRN (11:20)
[2020-01-22] MEDS ORDERED: fentaNYL citrate 100 MCG/2 ML VIAL IV PRN (11:20)
--- NOTE | 2020-01-22 11:26 | Procedure Note ---
Procedure Note Date of Service January 22, 2020 Radial arterial line placed in left wrist after induction in preparation for lap lymph node biopsy with Dr. Mac. Left wrist prepped with chlorhexidine and draped with sterile towels. 20 G angiocath placed under sterile technique utilizing sterile gloves, surgical hats and masks. Catheter threaded using seldinger technique with return of pulsatile, bright red blood. Site covered with occlusive dressing and taped in place. Waveform consistent with correct arterial placement. After placement, fingers of procedural hand had normal perfusion. Patient tolerated procedure well without complications. Kathy Holguin MD, PhD Anesthesiologist Coding
[2020-01-22] MEDS ORDERED: ESMOLOL HCL INJ 10 MG/ML 10ML VIAL IV ONE (12:32)
[2020-01-22] MEDS: ACETAMINOPHEN 325 MG TAB PO PRN (15:29)
[2020-01-22] MEDS: LORazepam 0.5 MG TAB PO PRN (15:34)
[2020-01-22] MEDS ORDERED: Nursing to Pharmacy Communication ONE (15:52)
--- NOTE | 2020-01-22 15:56 | Operative Report (OR) ---
DATE OF OPERATION: 01/22/2020 PREOPERATIVE DIAGNOSIS: Lymphadenopathy. POSTOPERATIVE DIAGNOSIS: Lymphadenopathy. OPERATION: Laparoscopic converted to open biopsy of the abdominal lymph node and the mesenteric mass and port insertion on the left internal jugular vein. SURGEON: Santi Mac MD. ELECTRON BEAM WELDER SETTER: Griselda Hook PA-C. ANESTHESIA: General. ESTIMATED BLOOD LOSS: About 15 mL. FINDINGS: Large mesenteric mass and normal finding on the liver. COMPLICATIONS: None. INDICATIONS FOR THE PROCEDURE: This is a 64-year-old gentleman who was admitted to the hospital for enlarged lymph node and the patient is required to do the laparoscopic biopsy of the abdominal lymph node and port insertion, possible open procedure. I did talk to the patient about the benefit, risk, alternate procedure. I indicated the risks may include but not limited to such as bleeding, infection, injury to the bowel, injury to the lung, blood clot and dysfunction of the catheter. The patient understands. He signed informed consent and I answered all questions. DETAILS OF PROCEDURE: We brought the patient to the OR, put the patient in supine position. The patient received SCD on bilateral legs to prevent DVT. Also, patient received 2 grams of Ancef IV for prophylactic antibiotic. The patient received general anesthesia without difficulties. Abdomen was prepped and draped in routine sterile fashion. After timeout, I injected local anesthesia just above the umbilicus by using 1% lidocaine mixed with 0.5% Marcaine. I then made about a 1.5 cm incision just above the umbilicus, opened fascia and opened peritoneum under direct vision, put a Karlos trocar in, connected to CO2 to create pneumoperitoneum with flow rate at 6 liters per minute, pressure not more than 14 mmHg. Once we got a nice pneumoperitoneum, we put the camera in, looked around the abdomen and normal finding on the liver; however, significantly large mass just below the camera, the mass coming from the mesentery with enlarged lymph node. Then, we put another two 5 mm trocar on the right lower quadrant and tried to mobilize the mass. However, because the mass was just below the camera, it was not feasible to do easy biopsy. At this moment, I decided to convert to open. I extended the incision to 4 cm on the midline and removed all the trocar before we extended the incision and then we found this large mesenteric mass just below the incision. Then I did 2 large lymph node biopsies, removed and also I did 2 pieces of the tumor biopsy, sent to pathology. Hemostasis was obtained. Now I closed the incision, fascial layer by using #1 PDS continuous running, closed subcutaneous layer by using 2-0 Vicryl continuous running, closed skin by using 4-0 Vicryl continuous running, another two 5 mm trocar site skin only by using 4-0 Vicryl, closed. Then, we put the dressing on. Then, the patient's left side of the neck and the left side of the upper chest were prepped and draped in routine sterile fashion and after timeout, I used the ultrasound guide. Using a 16-gauge needle, punctured the left side internal jugular vein with easy blood return. We passed the wire through the needle and removed the needle. Then, I used the fluoro to confirm the wire tip located at the junction between the right atrium and superior vena cava. Then, we injected local on the left side of the upper chest, made about a 2.5 cm incision on the left side of the upper chest to create a pouch. Then, we passed the catheter through the left side of the upper chest to reach the left side of the neck wire location. Then we passed the dilator and catheter through the wire, removed the wire, removed dilator and passed the catheter through the sheath and also another side end of the catheter connected to the port on the chest wall. Then we removed the sheath and again we used the fluoro to confirm the tip of the catheter located at the junction between the right atrium and the vena cava. Then we used 2-0 Prolene, fixed the port on the chest wall at 3 points. Then, we used 2-0 Vicryl to close subcutaneous layer interruptedly, closed skin by using 4-0 Vicryl continuous running. Then we used needle, connected the port to all sides of skin, easy blood return. I injected 10 mL of normal saline with heparin. Then, we put all dressing on. The patient tolerated the procedure well. All instrument, needle and sponge count were correct x2 at the end of the case. The patient was transferred to recovery room in stable condition. Specimen sent to pathology. I attest to the content of the Intraoperative Record and any orders documented therein. Any exception s are noted below.
--- NOTE | 2020-01-22 16:07 | Anesthesiology Progress Note ---
Date of Service January 22, 2020 Anesthesia Post Procedure Vital Signs Vital Signs: Temp Pulse Pulse Resp BP BP Pulse Ox 01/22/20 15:45 36.4 C L 83 18 126/77 92 01/22/20 15:30 36.4 C L 79 18 137/87 92 01/22/20 15:19 36.4 C L 63 18 134/84 90 01/22/20 14:55 36.6 C 61 16 122/80 95 01/22/20 14:45 36.6 C 61 16 122/77 94 01/22/20 14:35 62 16 122/80 94 01/22/20 14:25 64 16 122/78 95 01/22/20 14:18 36.2 C L 66 16 118/85 95 01/22/20 10:06 36.9 C 64 18 127/79 94 01/22/20 07:45 36.8 C 71 18 127/81 95 01/22/20 04:00 36.7 C 69 20 120/77 93 01/21/20 23:21 36.8 C 63 20 133/74 94 01/21/20 19:00 36.6 C 72 20 134/84 95 Pain Intensity Penis: Pain Intensity: 4 Medial Abdomen: Pain Intensity: 7 Transfer of Care Handoff Completed per policy Notes Mental Status: alert / awake / arousable and participated in evaluation Patient Amnestic to Procedure: Yes Nausea / Vomiting: adequately controlled Pain: adequately controlled Airway Patency, RR, SpO2: stable & adequate BP & HR: stable & adequate Hydration State: stable & adequate Anesthetic Complications: no major complications apparent and Pt Satisfied with anesthetic care
[2020-01-22] MEDS: OMEGA-3 (PURIFIED FISH OIL) 1 GM CAP PO SCH (16:38)
[2020-01-22] MEDS: NAPROXEN 250 MG TAB PO PRN (17:28)
--- NOTE | 2020-01-22 17:54 | Hospitalist Progress Note ---
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 Discussed with Dr. Peacock on 01/20. - Biopsy of retroperitoneal mass with Dr. Mac on 01/21 without any complications. - Will advance diet as able. Per surgery, possibly discharge tomorrow. (2) Scrotal swelling: For scrotal swelling, urology recommends to elevate scrotum. Will not pursue further intervention unless kidney function changes. (3) Hypertension: BP 130/80 today. - Continue losartan 100mg daily, carvedilol 25mg PO daily, amlodipine 5mg PO daily (4) Anxiety: Patient quite anxious. Will consider starting SSRI in near future. - For now, will just go with PRN Ativan. (5) Ascending aortic aneurysm: Noted to be stable on scan in Sep as per patient. He is not sure of the size, but says he thought maybe 2.5 cm. - CT scan here notes that it is 5cm. This is still below repairable size (5.5 cm for a sporadically occurring ascending TAA) (Per 2010 ACCF/AHA/AATS recs) - Will need follow up as outpatient to be sure this is actually not a large change. At this size, he will need Q6m scans to check for stability. (6) DVT prophylaxis: SCDs - Holding heparin for procedure; return to Lovenox tomorrow if he remains in the hospital. Admission and Anticipated Discharge Date Admission Date: January 20, 2020 Subjective Some stomach pain after surgery. Otherwise feeling well. Reports no fevers/chills, chest pain, shortness of breath, nausea, or vomiting. Physical Exam Constitutional: WD/WN, vitals as above Eyes: EOM intact bilaterally; no conjunctival abnormality ENMT: external ear and nose normal, oropharynx normal Neck: trachea midline, no thyromegaly normal visual inspection Respiratory: normal respiratory effort, lungs clear to auscultation no respiratory distress Cardiovascular: RRR, no murmur, no edema Gastrointestinal (Abdomen): Inspection/Auscultation: + abdominal surgical incision (Clean and bandaged); abdomen not distended Percussion/Palpation: + abdomen tender, + guarding and abdomen soft; abdomen not rigid and no ascites Musculoskeletal: no cyanosis or clubbing, extremities motor strength 5/5 Skin: no rashes, warm and dry Neurologic: moves all extremities and awake Psychiatric: Orientation: alert, oriented to person and cooperative Results & Data Results & Data ([facility]) Vital Signs (Past 12 Hours) Vital Signs Temp Pulse Pulse Resp BP BP Pulse Ox 01/22/20 17:00 36.4 C L 73 18 127/80 90 01/22/20 16:24 36.4 C L 83 18 114/77 90 01/22/20 15:45 36.4 C L 83 18 126/77 92 01/22/20 15:30 36.4 C L 79 18 137/87 92 01/22/20 15:19 36.4 C L 63 18 134/84 90 01/22/20 14:55 36.6 C 61 16 122/80 95 01/22/20 14:45 36.6 C 61 16 122/77 94 01/22/20 14:35 62 16 122/80 94 01/22/20 14:25 64 16 122/78 95 01/22/20 14:18 36.2 C L 66 16 118/85 95 01/22/20 10:06 36.9 C 64 18 127/79 94 01/22/20 07:45 36.8 C 71 18 127/81 95 PG Care Time/CCT Total # of Minutes Spent Total Time Spent with Patient: Total time spent is greater than 50% in coordination of care (as documented) at patient's floor/unit and/or counseling patient: Coding Level of Care Code 61463 Subseq Hosp Care Lvl 3 Diagnoses Abdominal lymphadenopathy R59.0 Scrotal swelling N50.89 Hypertension I10 Anxiety F41.9 Ascending aortic aneurysm I71.2 DVT prophylaxis Z29.9
[2020-01-23] MEDS: ACETAMINOPHEN 325 MG TAB PO PRN (00:40)
[2020-01-23] MEDS: LORazepam 0.5 MG TAB PO PRN ×2 (00:40→08:07)
[2020-01-23 05:58] LABS: Hematocrit (blood only) 35.8 % (42-52); Hemoglobin 11.3 g/dL (14.0-18.0); Mean Corpuscular Hgb Conc 31.6 g/dL (32-36); Mean Corpuscular Volume 98.1 fL (80-100); Mean Platelet Volume 10.2 fL (7.4-10.4); Platelet Count 210 K/uL (130-400); RDW Coefficient of Variation 14.4 % (11.5-14.5); RDW Standard Deviation 51.7 fL (36.4-46.3); Red Blood Count 3.65 M/uL (4.7-6.1); White Blood Count 6.65 K/uL (4.8-10.8)
--- NOTE | 2020-01-23 06:19 | Electrocardiogram Report ---
Test Reason : Blood Pressure : / mmHG Vent. Rate : 070 BPM Atrial Rate : 070 BPM P-R Int : 186 ms QRS Dur : 098 ms QT Int : 408 ms P-R-T Axes : 045 003 030 degrees QTc Int : 440 ms Normal sinus rhythm Normal ECG No previous ECGs available Confirmed by Edward Degroot ([id number]) on 01/23/2020 6:18:44 AM Referred By: Wolfgang Carney Confirmed By:Edward Degroot
[2020-01-23 06:27] LABS: BUN Creatinine Ratio 12.3 (10-20); Calcium 8.3 mg/dl (8.5-10.1); Creatinine Clr Calc Pharmacy 62.2 ml/min; Est GFR (African American) 66.4; Est GFR (Non-African American) 57.3; Phosphorus 4.4 mg/dl (2.5-4.9); Potassium 4.2 mmol/L (3.5-5.1); Uric Acid 6.5 mg/dl (2.6-7.2)
[2020-01-23] MEDS: LOSARTAN POTASSIUM 50 MG TAB PO SCH (08:05)
[2020-01-23] MEDS: carvediloL 25 MG TAB PO SCH (08:05)
[2020-01-23] MEDS: FERROUS SULFATE 325 MG TAB PO SCH (08:05)
[2020-01-23] MEDS: NAPROXEN 250 MG TAB PO PRN (08:06)
[2020-01-23] MEDS: AMLODIPINE BESYLATE 5 MG TAB PO SCH (08:06)
[2020-01-23] MEDS: OMEGA-3 (PURIFIED FISH OIL) 1 GM CAP PO SCH (08:06)
[2020-01-23] MEDS: POLYETHYLENE (MIRALAX) 17 GM PACK PO PRN (08:07)
[2020-01-23] MEDS ORDERED: TRAMADOL HCL 50 MG TABLET PO PRN (08:55)
[2020-01-23] MEDS ORDERED: CEROVITE ADV FORMULA TAB PO SCH (09:00)
[2020-01-23] MEDS ORDERED: OXYCODONE/ACETAMINOPHEN 5mg/325mg TAB PO PRN (11:40)
[2020-01-23] MEDS ORDERED: DOCUSATE SODIUM 100 MG CAP PO ONE (11:40)
[2020-01-23] MEDS: SODIUM CHLORIDE 0.45 % 1,000 ML IV SCH (13:09)
--- NOTE | 2020-01-23 14:07 | Post Operative Brief Note ---
Immediate Post Op Note v1 Date of Surgery January 22, 2020 Pre & Post Diagnosis Operation Date: 01/22/20 09:40 Pre-Op Diagnosis:lymphadenopathy Post-Op Diagnosis:lymphadenopathy I identified the patient and participated in the time-out.: Yes Procedure Operation Date: 01/22/20 09:40 Actual Procedures p Laparoscopic convert to Open Abdominal Lymph Node Biopsy(mesenteric lymph node and mass) - Santi Mac MD s Infusaport Insertion(Left internal jugular vein) - Santi Mac MD Surgeon Santi Mac MD Senior Engineering Team Leader KRYS Moore, only first assitant for open biopsy abdominal lymph node Estimated Blood Loss 15 Findings Consistent with Post-Op Diagnosis large mesenteric mass and lymph node Fluids 1500ml Specimens mesenteric lymph node and mesenteric mass tissue Anesthesia Type General Complications none Disposition Accompanied Patient To Recovery: Yes Disposition: Recovery Room Overlapping Procedure I was immediately available: during the entire case.
--- NOTE | 2020-01-23 14:34 | Surgery Progress Note ---
Date of Service January 23, 2020 Assessment & Plan (1) Abdominal lymphadenopathy: pt is a 64 year-old male who was admitted to hospital for lower extremity and scrotal swelling. Found to have extensive chest, abdominal, and pelvic lymphadenopathy with large intra-abdominal mass. POD # 1 s/p diagnostic laparoscopy with open incisional biopsy of large intra- abdominal mass/lymph node and insertion of left IJ aport Plan: Okay from surgical standpoint for discharge discharge instructions reviewed Rx for Percocet prn pain, add Percocet prn while her in hospital for better postop pain control recommend stool softener daily at discharge f/u with oncology once biopsy results obtained f/u surgical office in [address] Mac was present during my examination and agrees with above plan. Subjective feeling okay having moderate abdominal pain that is not well controlled with the Tylenol tolerated clears this am Physical Exam Constitutional: WD/WN, vitals as above no acute distress Respiratory: normal respiratory effort Chest (Breasts): Additional Comments: left chest and neck dressing dry and intact, no surrounding erythema or edema Gastrointestinal (Abdomen): Inspection/Auscultation: abdomen normal to inspection; abdomen not distended Percussion/Palpation: + abdomen rigid (midabdomen due to large intra-abdominal mass, no change) and abdomen soft; abdomen nontender and no guarding Skin: no rashes, warm and dry + incision (abdominal incisions c/d/i) Psychiatric: Orientation: oriented x 3 Results & Data Vital Signs (Past 12 Hours) Vital Signs Temp Pulse Resp BP Pulse Ox 01/23/20 07:52 36.4 C L 76 18 148/90 H 91 Laboratory Results 01/23/20 01/23/20 Range/Units 05:39 05:39 WBC 6.65 (4.8-10.8) K/uL RBC 3.65 L (4.7-6.1) M/uL Hgb 11.3 L (14.0-18.0) g/dL Hct 35.8 L (42-52) % MCV 98.1 (80-100) fL MCH 31.0 (25-34) pg MCHC 31.6 L (32-36) g/dL RDW Std Deviation 51.7 H (36.4-46.3) fL RDW Coeff of Anish 14.4 (11.5-14.5) % Plt Count 210 (130-400) K/uL MPV 10.2 (7.4-10.4) fL Sodium 137 (136-145) mmol/L Potassium 4.2 (3.5-5.1) mmol/L Chloride 105 (98-107) mmol/L Carbon Dioxide 27 (21-32) mmol/L Anion Gap 5.0 (3-11) BUN 16 (7-18) mg/dl Creatinine 1.30 (0.6-1.4) mg/dl Est Cr Clr Drug Dosing 62.2 ml/min Est GFR ( Amer) 66.4 Est GFR (Non-Af Amer) 57.3 BUN/Creatinine Ratio 12.3 (10-20) Glucose 89 (70-99) mg/dl Uric Acid 6.5 (2.6-7.2) mg/dl Calcium 8.3 L (8.5-10.1) mg/dl Phosphorus 4.4 (2.5-4.9) mg/dl Magnesium 2.0 (1.8-2.4) mg/dl
--- NOTE | 2020-01-23 16:49 | Discharge Summary ---
Date of Service January 23, 2020 Admission HPI Per Admitting Provider Lamberto Reece is a 64 year old male who presents as a direct admission from oncology clinic due to scrotal swelling and abdominal lymphadenopathy. The patient notes a 4 week history of change of bowel habit and abdominal cramps followed by 4 day history of scrotal and penile swelling without pain or change in urine frequency, nocturia, hematuria or dysuria. He had an outpatient CT which showed an enlarged abdominal mass ?lymph node (results not available at time of admission) and was referred to Dr Peacock for further management. Regarding his scrotal swelling he was seen in the ER on and since he already had a f ollow up with Dr Peacock at that time was just advised to follow up as previously planned. He followed up with Dr Peacock in clinic today and recommended admission for further workup. Patient otherwise feels ok but is very anxious. No fevers, chills, weight loss. Principal Diagnosis Lymphoma Discharge Exam Constitutional WD/WN, vitals as above Eyes EOM intact bilaterally; no conjunctival abnormality ENMT external ear and nose normal, oropharynx normal Neck trachea midline, no thyromegaly normal visual inspection Respiratory normal respiratory effort, lungs clear to auscultation no respiratory distress Cardiovascular RRR, no murmur, no edema Gastrointestinal (Abdomen) Inspection/Auscultation: + abdominal surgical incision (Clean and bandaged); abdomen not distended Percussion/Palpation: + abdomen tender, + guarding and abdomen soft; abdomen not rigid and no ascites Musculoskeletal no cyanosis or clubbing, extremities motor strength 5/5 Skin no rashes, warm and dry Neurologic moves all extremities and awake Psychiatric Orientation: alert, oriented to person and cooperative Discharge Data Allergies Allergy/AdvReac Type Severity Reaction Status Date / Time No Known Allergies Allergy Unverified 01/22/20 10:05 Consultations 01/20/20 15:20 Consult Case Management - Discharge Planning Routine 01/20/20 16:38 Consult Oncology Routine 01/21/20 05:44 Consult General Surgery Routine 01/21/20 07:29 Consult Urology Routine Procedures Performed Operation Date: 01/22/20 09:40 Actual Procedures p Laparoscopic to Open Abdominal Lymph Node Biopsy(Not Applicable) - Santi Mac MD s Infusaport Insertion(Left) - Santi Mac MD Ordered Studies 01/20/20 16:36 CT abd pelvis IV con only Routine CT chest w con Routine 01/20/20 17:31 US scrotum/testicle Routine 01/22/20 10:30 FL fluoro (infusaport) to 1 hr Routine Hospital Course (1) Abdominal lymphadenopathy: Suspected lymphoproliferative malignancy. Discussed with Dr. Peacock on 01/20. - Biopsy of retroperitoneal mass with Dr. Mac on 01/21 without any complications. - Per Dr. Peacock, preliminary read is lymphoma. Exact type not yet known. [facility] with [facility]. (2) Scrotal swelling: For scrotal swelling, urology recommends to elevate scrotum. Will not pursue further intervention unless kidney function changes. (3) Hypertension: BP 130/80 today. - Continue losartan 100mg daily, carvedilol 25mg PO daily, amlodipine 5mg PO daily (4) Anxiety: Patient understandably quite anxious. Consider starting SSRI in near future. - Sent home on a short course of Ativan, but gave strong counseling that this should be temporary and used very carefully. Discussed this with his as well. Should start SSRI if anxiety continues to be a big issue. (5) Ascending aortic aneurysm: Noted to be stable on scan in Sep as per patient. He is not sure of the size, but says he thought maybe 2.5 cm. - CT scan here notes that it is 5cm. This is still below repairable size (5.5 cm for a sporadically occurring ascending TAA) (Per 2010 ACCF/AHA/AATS recs) - Will need follow up as outpatient to be sure this is actually not a large change. At this size, he will need Q6m scans to check for stability. (6) DVT prophylaxis: SCDs - Holding heparin for procedure; return to Lovenox tomorrow if he remains in the hospital. Total Time Total Time Spent Total Time Spent (In Minutes): 35 Discharge Plan Discharge Items Patient Disposition: Home - Self-Care Reason For Visit: RETROPERITONEAL MASS Discharge Diagnosis: Concern for cancer Activity: Resume your previous activity Non-emergency contact: Primary Care Provider and Oncologist Call non-emergency contact if: your symptoms worsen and your temperature is above 101 Follow-up/Referrals: Pérez Peacock DO [Physician] - (Please call the [facility] on Sunday, January 25 to schedule a follow up appointment.) JAYCE JUAREZ PA [Primary Care Provider] - Diet: Heart Healthy [facility] Attending Provider Instructions: You were admitted to the hospital with a large mass in your abdominal space. Unfortunately, we think this is cancer. Dr. aMc took a biopsy, and this is still pending in the pathology lab. Please call the [facility] on January 25 to schedule a follow up. At that visit, Dr. Peacock will speak with you about the diagnosis and speak with you about treatment options. We are starting allopurinol on the instructions of Dr. Peacock to protect your kidneys from the cancer and chemotherapy. Please follow up with your regular doctors about your aortic aneurysm. It was measured at 5 cm this admission which is still below the threshold for needing any surgical intervention, but if it has changed at all, your doctors would want to know. Please call your PCP or the Cancer Center with any fevers, chills, sweats, new/unusual pain, or any other concerning symptoms or return to the hospital if needed. [facility] Navigator Provider Instructions: Surgical discharge instructions: - no heavy lifting over 25 pounds for 4 weeks - no strenuous activity until cleared by surgeon but walking and light activity is encouraged daily - Do no submerging incisions underwater for 2 weeks. May shower in 2 days. - Leave dressings on the port site for at least 1 week unless it needs accessed prior. - May remove abdominal dressings after showering and replace daily - Leave steri strips on incisions for 1 week and then remove. - May take Percocet as needed for moderate to severe pain. -may alternate extra strength Tylenol (650 mg every 6 hours ) and Ibuprofen (600 mg every 6 hours) as needed for mild pain. - Recommend taking daily stool softener (Colace) while taking narcotic pain medication - Follow-up in surgical office in 2 weeks. Please call office at [phone] to make an appointment and if you have any questions or concerns. Pending Studies at Discharge: Yes Studies:: Biopsy results Stand-Alone Forms: My [employer], Smoking Cessation Medications and DC Order Prescriptions: New oxycodone-acetaminophen 5-325 mg tablet 1 tab PO Q4H PRN (Reason: pain) Qty: 18 RF: 0 allopurinol 300 mg tablet 300 mg PO DAILY Qty: 30 RF: 0 lorazepam 0.5 mg tablet 0.5 mg PO BID PRN (Reason: anxiety) Qty: 14 RF: 0 Continued carvedilol 25 mg tablet 25 mg PO DAILY RF: 0 amlodipine 5 mg tablet 5 mg PO DAILY RF: 0 ferrous sulfate [iron] 325 mg (65 mg iron) Tablet 325 mg PO DAILY RF: 0 losartan 100 mg tablet 100 mg PO DAILY RF: 0 Multivitamin 50 Plus Tablet 1 tab PO DAILY RF: 0 [id number] [MegaRed [place]-3 Krill Oil] 1,000-230-60 mg Capsule 1 cap PO DAILY RF: 0 Discontinued naproxen sodium [Aleve] 220 mg Tablet 220 mg PO Q12H PRN (Reason: Pain) RF: 0 Discharge Orders: Discharge Order (Routine); Ordered 01/23/20 Ordered By: Angel Jean Admission Data Admit Date/Time: 01/20/20 15:05 Attending Provider: Angel Jean Admit Provider: Wolfgang Carney Primary Care Provider: JAYCE JUAREZ Other Providers: Pérez Peacock V. ; Lamberto Judge ; Andrez Phelps Other Interventions: Discharge Summary Assessment (RN) Last Done: 01/23/20 14:33 DC Date/Time DO NOT enter until pt leaves facility: 01/23/20 15:55 Coding Level of Care Code D/C Day Management >30 mins Diagnoses Abdominal lymphadenopathy R59.0 Scrotal swelling N50.89 Hypertension I10 Anxiety F41.9 Ascending aortic aneurysm I71.2 DVT prophylaxis Z29.9
== END 2020-01-23 15:55 | disposition home or self-care (01) | DRG 824 ==
LOC: SUATTDRO 15:05 → 2W 15:05

== ENCOUNTER 2020-02-27 13:36 | Observation (INO) ==
[2020-02-27 14:56] LABS: Basophils # (auto) 0.03 K/uL (0-0.2); Basophils % (auto) 0.6 %; Eosinophils # (auto) 0.25 K/uL (0-0.5); Eosinophils % (auto) 5.2 %; Hematocrit (blood only) 31.4 % (42-52); Hemoglobin 10.6 g/dL (14.0-18.0); Immature Granulocytes # (auto) 0.02 K/uL (0.00-0.02); Immature Granulocytes % (auto) 0.4 %; Lymphocytes # (auto) 0.61 K/uL (1.2-3.4); Lymphocytes % (auto) 12.8 %; Mean Corpuscular Hemoglobin 31.4 pg (25-34); Mean Corpuscular Hgb Conc 33.8 g/dL (32-36); Mean Corpuscular Volume 92.9 fL (80-100); Mean Platelet Volume 10.7 fL (7.4-10.4); Monocytes % (auto) 8.4 %; Neutrophils # (auto) 3.47 K/uL (1.4-6.5); Neutrophils % (auto) 72.6 %; Platelet Count 213 K/uL (130-400); RDW Standard Deviation 47.1 fL (36.4-46.3); Red Blood Count 3.38 M/uL (4.7-6.1); White Blood Count 4.78 K/uL (4.8-10.8)
--- NOTE | 2020-02-27 15:06 | XRay Report ---
XR chest 1V portable CLINICAL HISTORY: SEPSIS dyspnea COMPARISON STUDY: No previous studies for comparison. FINDINGS: Moderate cardiomegaly. Central catheter in superior vena cava. Small bilateral bibasilar parenchymal infiltrates. Mid and upper lungs are clear. IMPRESSION: Small bibasilar parenchymal infiltrates. Cardiomegaly. ACT 112: Negative or not required by law. The above report was generated using voice recognition software. It may contain grammatical, syntax or spelling errors. Electronically signed by: Edwin Gomez M.D. 02/27/2020 3:05 PM
[2020-02-27 15:07] LABS: INR 1.1 (0.9-1.1); Partial Thromboplastin Ratio 0.9; Partial Thromboplastin Time 24.1 Seconds (21.0-31.0); Prothrombin Time 11.5 Seconds (9.0-12.0)
[2020-02-27 15:12] LABS: Alanine Aminotransferase 51 U/L (12-78); Albumin Level 3.1 gm/dl (3.4-5.0); Aspartate Aminotransferase 39 U/L (15-37); BUN Creatinine Ratio 13.6 (10-20); Blood Urea Nitrogen 30 mg/dl (7-18); Calcium 8.4 mg/dl (8.5-10.1); Carbon Dioxide 24 mmol/L (21-32); Chloride 106 mmol/L (98-107); Creatinine Clr Calc Pharmacy 40.6 ml/min; Est GFR (African American) 35.5; Est GFR (Non-African American) 30.6; Glucose 94 mg/dl (70-99); Magnesium 2.1 mg/dl (1.8-2.4); Potassium 4.5 mmol/L (3.5-5.1); Sodium 135 mmol/L (136-145)
[2020-02-27 15:17] LABS: Albumin Globulin Ratio 0.9 (0.9-2); Alkaline Phosphatase 159 U/L (45-117); Bilirubin,Total 0.7 mg/dl (0.2-1); Globulin 3.3 gm/dl (2.5-4.0); Total Protein 6.4 gm/dl (6.4-8.2); Troponin I < 0.015 ng/ml (0-0.045)
[2020-02-27] MEDS ORDERED: SODIUM CHLORIDE 0.9% 1000ML 1,000 ML IV ONE (15:23)
[2020-02-27 16:16] LABS: Appearance Urine Clear (Clear); Bilirubin Urine Negative (Negative); Blood Urine Negative (Negative); Color Urine Yellow; Glucose Urine UA Negative (Negative); Ketones Urine Negative (Negative); Leukocyte Esterase Urine Negative (Negative); Nitrite Urine Negative (Negative); Protein Urine Negative (Negative); Specific Gravity Urine 1.013 (1.000-1.030); Urobilinogen Urine Negative (Negative); pH Urine 5.5 (4.5-7.5)
--- NOTE | 2020-02-27 16:21 | Emergency Department Note ---
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 London presents emergency department for shortness of breath. Patient reports he has been also having chest pressure and epigastric pain for last 2 days. He also reports palpitations. He states he called Dr. London's office who told him to come to the emergency department today. Home Medications Home Medications Medication Instructions Recorded Confirmed Type Multivitamin 50 Plus 1 tab PO DAILY 01/16/20 02/27/20 History amlodipine 5 mg PO DAILY 01/16/20 02/27/20 History carvedilol 25 mg PO DAILY 01/16/20 02/27/20 History losartan 100 mg PO DAILY 01/16/20 02/27/20 History allopurinol 300 mg PO DAILY #30 tab 01/23/20 02/27/20 Rx lorazepam 0.5 mg PO BID PRN #14 tab 01/23/20 02/27/20 Rx Cbd Oil Capsules 650 mg PO DIRECTED PRN 02/27/20 02/27/20 History Allergies Allergy/AdvReac Type Severity Reaction Status Date / Time No Known Allergies Allergy Verified 02/27/20 15:06 Past Med/Surg History Family History Other No known health problems Social History Preferred Language: Serbian 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 Ability: Effective 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 Beliefs That Will Affect Care: None marital status: Current Living Situation: Spouse Feels Safe at Home: Yes Smoking Status: Never smoker Hx Alcohol Use: Yes Alcohol type: beer and hard liquor Hx Substance Use: Yes substance use type: marijuana Last Used Substance: Days (ago) Last Used Substance Other:: a week ago Review of Systems A total of 10 systems reviewed and were otherwise negative Physical Exam Vital Signs Vital Signs - 24 hr 02/27/20 13:57 02/27/20 14:14 02/27/20 14:31 Temperature 36.9 C Temperature Source Oral Pulse Rate 88 Pulse Rate [Apical] Pulse Rhythm [Apical] Pulse Strength [Apical] Respiratory Rate 20 Respiratory Effort / Characteristics Non-Labored Spontaneous Non-Labored Spontaneous Respiratory Depth Normal Normal Respiratory Pattern Regular Regular Blood Pressure 105/69 Blood Pressure [Left Arm] Blood Pressure Mean 81 Blood Pressure Mean [Left Arm] Blood Pressure Position [Left Arm] Pulse Oximetry 93 Oxygen Delivery Method Room Air Room Air Oxygen Flow Rate 95 Sepsis Recent Fever Within 48 Hours No Sepsis Action Taken by Nursing No Action Required 02/27/20 14:41 02/27/20 16:53 02/27/20 17:51 Temperature Temperature Source Pulse Rate Pulse Rate [Apical] 100 H Pulse Rhythm [Apical] Regular Pulse Strength [Apical] Normal Respiratory Rate 20 Respiratory Effort / Characteristics Non-Labored Spontaneous Respiratory Depth Normal Respiratory Pattern Regular Blood Pressure Blood Pressure [Left Arm] 114/74 Blood Pressure Mean Blood Pressure Mean [Left Arm] 87 Blood Pressure Position [Left Arm] Sitting Pulse Oximetry 94 92 95 Oxygen Delivery Method Room Air Room Air Nasal Cannula Oxygen Flow Rate 2 Sepsis Recent Fever Within 48 Hours Sepsis Action Taken by Nursing Physical Exam GENERAL: He is oriented to person, place, and time. He appears well-developed and well-nourished. He does not appear distressed. HENT: Exam performed. - Head: Normocephalic and atraumatic. - Right Ear: External ear normal. No mastoid tenderness. - Left Ear: External ear normal. No mastoid tenderness. - Mouth/Throat: The oropharynx is clear and moist. No trismus in the jaw. No dental abscesses or uvula swelling. No oropharyngeal exudate or tonsillar abscesses. EYES: Conjunctivae and EOM are normal. Pupils are equal, round, and reactive to light. Right eye exhibits no discharge. Left eye exhibits no discharge. No sc leral icterus. NECK: Normal range of motion. Neck supple. No JVD present. No spinous process tenderness present. No carotid bruit present. No rigidity. No tracheal deviation and normal range of motion present. No Brudzinski's sign and no Kernig's sign noted. CV: Normal rate, regular rhythm, normal heart sounds and intact distal pulses. There is no peripheral edema. Palpable radial pulses bue. PULM/CHEST: Effort normal and breath sounds normal. No respiratory distress. No stridor. He has no wheezes. He has no rales. - Chest Wall: Mediport present. ABD: The abdomen is soft. Bowel sounds are normal. He has no distension. No mass is present. There is no tenderness. There is no rebound, no guarding, no Casillas's sign and no tenderness at McBurney's point. Rovsig negative. MUSC/SKEL: Normal range of motion. There is no peripheral edema, tenderness or deformity. LYMPH: No cervical adenopathy. NEURO: He is alert and oriented to person, place, and time. He has normal strength. No cranial nerve deficit or sensory deficit. Coordination and gait normal. GCS eye subscore is 4. GCS verbal subscore is 5. GCS motor subscore is 6. Cerebellar tests wnl. SKIN: Skin is warm and dry. He is not diaphoretic. PSYCH: He has a normal mood and affect. Behavior is normal. Judgment and thought content normal. Course Course 1430: The patient was evaluated in room A2. A complete history and physical exam was performed. Cardiac monitoring: An order was placed for continuous cardiac monitoring. The monitor shows a rate of 90 with sinus rhythm 1530: Vital signs stable. Patient has acute kidney injury with his creatinine being elevated at 2.18, his baseline appears to be less than 1.5. Given this elevated creatinine, we will not be able obtain CTs with contrast and we will conduct them without contrast. 1700: Vital signs stable. CT imaging shows an increased size of his masses. There is stable obstruction of his ureters causing hydroureteronephrosis due to the large retroperitoneal mass. We are unable to rule out PE at this time due to CTA not being available due to the patient's elevated creatinine. Will con duct a d-dimer test and if elevated plan on anticoagulation. IV fluids started for the patient's acute kidney injury. I did discuss with Dr. Mcmanus [facility] hospitalist who agrees to the admission and he agrees that the patient should be anticoagulated if his d-dimer is elevated. Both Dr. Mcmanus and I agree that heparin would be the ideal choice for the patient's anticoagulations given his acute kidney injury. 1758: Vital signs stable. Patient's d-dimer significantly elevated. Patient will be started on heparin as previously discussed with the hospitalist team. Administered Medications Heparin Sodium/Dextrose (Heparin Sodium/Dextrose) 25,000 units in 500 mls @ 0.02 mls/hr IV .Q24H [facility]; Protocol Stop: 03/28/20 17:44 Last Admin: 02/27/20 18:18 Dose: 1,550 units/hr, 31 mls/hr Documented by: [id number] Cosigned by: [id number] Discontinued Medications Heparin Sodium (Porcine) (Heparin Iv Bolus) Confirm Administered Dose 10,000 units .ROUTE .STK-MED ONE Stop: 02/27/20 18:15 Last Admin: 02/27/20 18:17 Dose: 7,000 units Documented by: [id number] Cosigned by: [id number] Heparin Sodium/Dextrose () 1 ea IV NOW STA; Protocol Stop: 02/27/20 17:34 Last Admin: 02/27/20 18:19 Dose: Not Given Documented by: [id number] Sodium Chloride (Nss 1000ml) 1,000 mls @ 999 mls/hr IV .Q1H1M ONE Stop: 02/27/20 16:23 Last Admin: 02/27/20 16:53 Dose: 999 mls/hr Documented by: [id number] Critical Care Time Critical Care Time: Yes Total Critical Care Time: 59 I have personally spent greater than 59 minutes of critical care time in the direct management of this patient. This includes bedside care, interpretation of diagnostic studies, and testing, discussion with consultants, patient, and family members, and other required patient management activities. This 59 minutes is in excess of all separately billable procedures. Medical Decision Making Laboratory Data Result diagrams: 02/27/20 14:43 02/27/20 14:43 Lab Results 02/27/20 02/27/20 02/27/20 Range/Units 14:43 14:43 14:43 WBC 4.78 L (4.8-10.8) K/uL RBC 3.38 L (4.7-6.1) M/uL Hgb 10.6 L (14.0-18.0) g/dL Hct 31.4 L (42-52) % MCV 92.9 (80-100) fL MCH 31.4 (25-34) pg MCHC 33.8 (32-36) g/dL RDW Std Deviation 47.1 H (36.4-46.3) fL RDW Coeff of Anish 14.0 (11.5-14.5) % Plt Count 213 (130-400) K/uL MPV 10.7 H (7.4-10.4) fL Immature Gran % (Auto) 0.4 % Neut % (Auto) 72.6 % Lymph % (Auto) 12.8 % [place] % (Auto) 8.4 % Eos % (Auto) 5.2 % Baso % (Auto) 0.6 % Neut # (Auto) 3.47 (1.4-6.5) K/uL Lymph # (Auto) 0.61 L (1.2-3.4) K/uL [place] # (Auto) 0.40 (0.11-0.59) K/uL Eos # (Auto) 0.25 (0-0.5) K/uL Baso # (Auto) 0.03 (0-0.2) K/uL Immature Gran # (Auto) 0.02 (0.00-0.02) K/uL PT 11.5 (9.0-12.0) Seconds INR 1.1 (0.9-1.1) APTT 24.1 (21.0-31.0) Seconds PTT Ratio 0.9 D-Dimer (0-500) ug/L FEU Sodium (136-145) mmol/L Potassium (3.5-5.1) mmol/L Chloride (98-107) mmol/L Carbon Dioxide (21-32) mmol/L Anion Gap (3-11) BUN (7-18) mg/dl Creatinine (0.6-1.4) mg/dl Est Cr Clr Drug Dosing ml/min Est GFR ( Amer) Est GFR (Non-Af Amer) BUN/Creatinine Ratio (10-20) Glucose (70-99) mg/dl Lactate (0.4-2.0) mmol/L Calcium (8.5-10.1) mg/dl Magnesium (1.8-2.4) mg/dl Total Bilirubin (0.2-1) mg/dl AST (15-37) U/L ALT (12-78) U/L Alkaline Phosphatase (45-117) U/L Troponin I (0-0.045) ng/ml Total Protein (6.4-8.2) gm/dl Albumin (3.4-5.0) gm/dl Globulin (2.5-4.0) gm/dl Albumin/Globulin Ratio (0.9-2) Procalcitonin 0.37 (0-0.5) ng/ml Urine Color Urine Appearance (Clear) Urine pH (4.5-7.5) Ur Specific [place] (1.000-1.030) Urine Protein (Negative) Urine Glucose (UA) (Negative) Urine Ketones (Negative) Urine Blood (Negative) Urine Nitrite (Negative) Urine Bilirubin (Negative) Urine Urobilinogen (Negative) Ur Leukocyte Esterase (Negative) 02/27/20 02/27/20 02/27/20 Range/Units 14:43 14:43 14:43 WBC (4.8-10.8) K/uL RBC (4.7-6.1) M/uL Hgb (14.0-18.0) g/dL Hct (42-52) % MCV (80-100) fL MCH (25-34) pg MCHC (32-36) g/dL RDW Std Deviation (36.4-46.3) fL RDW Coeff of Anish (11.5-14.5) % Plt Count (130-400) K/uL MPV (7.4-10.4) fL Immature Gran % (Auto) % Neut % (Auto) % Lymph % (Auto) % [place] % (Auto) % Eos % (Auto) % Baso % (Auto) % Neut # (Auto) (1.4-6.5) K/uL Lymph # (Auto) (1.2-3.4) K/uL [place] # (Auto) (0.11-0.59) K/uL Eos # (Auto) (0-0.5) K/uL Baso # (Auto) (0-0.2) K/uL Immature Gran # (Auto) (0.00-0.02) K/uL PT (9.0-12.0) Seconds INR (0.9-1.1) APTT (21.0-31.0) Seconds PTT Ratio D-Dimer 4090 H* (0-500) ug/L FEU Sodium 135 L (136-145) mmol/L Potassium 4.5 (3.5-5.1) mmol/L Chloride 106 (98-107) mmol/L Carbon Dioxide 24 (21-32) mmol/L Anion Gap 6.0 (3-11) BUN 30 H (7-18) mg/dl Creatinine 2.18 H (0.6-1.4) mg/dl Est Cr Clr Drug Dosing 40.6 ml/min Est GFR ( Amer) 35.5 Est GFR (Non-Af Amer) 30.6 BUN/Creatinine Ratio 13.6 (10-20) Glucose 94 (70-99) mg/dl Lactate 1.1 (0.4-2.0) mmol/L Calcium 8.4 L (8.5-10.1) mg/dl Magnesium 2.1 (1.8-2.4) mg/dl Total Bilirubin 0.7 (0.2-1) mg/dl AST 39 H (15-37) U/L ALT 51 (12-78) U/L Alkaline Phosphatase 159 H (45-117) U/L Troponin I < 0.015 (0-0.045) ng/ml Total Protein 6.4 (6.4-8.2) gm/dl Albumin 3.1 L (3.4-5.0) gm/dl Globulin 3.3 (2.5-4.0) gm/dl Albumin/Globulin Ratio 0.9 (0.9-2) Procalcitonin (0-0.5) ng/ml Urine Color Urine Appearance (Clear) Urine pH (4.5-7.5) Ur Specific [place] (1.000-1.030) Urine Protein (Negative) Urine Glucose (UA) (Negative) Urine Ketones (Negative) Urine Blood (Negative) Urine Nitrite (Negative) Urine Bilirubin (Negative) Urine Urobilinogen (Negative) Ur Leukocyte Esterase (Negative) 02/27/20 Range/Units 14:44 WBC (4.8-10.8) K/uL RBC (4.7-6.1) M/uL Hgb (14.0-18.0) g/dL Hct (42-52) % MCV (80-100) fL MCH (25-34) pg MCHC (32-36) g/dL RDW Std Deviation (36.4-46.3) fL RDW Coeff of Anish (11.5-14.5) % Plt Count (130-400) K/uL MPV (7.4-10.4) fL Immature Gran % (Auto) % Neut % (Auto) % Lymph % (Auto) % [place] % (Auto) % Eos % (Auto) % Baso % (Auto) % Neut # (Auto) (1.4-6.5) K/uL Lymph # (Auto) (1.2-3.4) K/uL [place] # (Auto) (0.11-0.59) K/uL Eos # (Auto) (0-0.5) K/uL Baso # (Auto) (0-0.2) K/uL Immature Gran # (Auto) (0.00-0.02) K/uL PT (9.0-12.0) Seconds INR (0.9-1.1) APTT (21.0-31.0) Seconds PTT Ratio D-Dimer (0-500) ug/L FEU Sodium (136-145) mmol/L Potassium (3.5-5.1) mmol/L Chloride (98-107) mmol/L Carbon Dioxide (21-32) mmol/L Anion Gap (3-11) BUN (7-18) mg/dl Creatinine (0.6-1.4) mg/dl Est Cr Clr Drug Dosing ml/min Est GFR ( Amer) Est GFR (Non-Af Amer) BUN/Creatinine Ratio (10-20) Glucose (70-99) mg/dl Lactate (0.4-2.0) mmol/L Calcium (8.5-10.1) mg/dl Magnesium (1.8-2.4) mg/dl Total Bilirubin (0.2-1) mg/dl AST (15-37) U/L ALT (12-78) U/L Alkaline Phosphatase (45-117) U/L Troponin I (0-0.045) ng/ml Total Protein (6.4-8.2) gm/dl Albumin (3.4-5.0) gm/dl Globulin (2.5-4.0) gm/dl Albumin/Globulin Ratio (0.9-2) Procalcitonin (0-0.5) ng/ml Urine Color Yellow Urine Appearance Clear (Clear) Urine pH 5.5 (4.5-7.5) Ur Specific [place] 1.013 (1.000-1.030) Urine Protein Negative (Negative) Urine Glucose (UA) Negative (Negative) Urine Ketones Negative (Negative) Urine Blood Negative (Negative) Urine Nitrite Negative (Negative) Urine Bilirubin Negative (Negative) Urine Urobilinogen Negative (Negative) Ur Leukocyte Esterase Negative (Negative) Imaging Data Radiologist's Impression: XR chest 1V portable CLINICAL HISTORY: SEPSIS dyspnea COMPARISON STUDY: No previous studies for comparison. FINDINGS: Moderate cardiomegaly. Central catheter in superior vena cava. Small bilateral bibasilar parenchymal infiltrates. Mid and upper lungs are clear. IMPRESSION: Small bibasilar parenchymal infiltrates. Cardiomegaly. ACT 112: Negative or not required by law. The above report was generated using voice recognition software. It may contain grammatical, syntax or spelling errors. Electronically signed by: Edwin Gomez M.D. 02/27/2020 3:05 PM Dictated: 02/27/20 1501 Transcribed: 02/27/[address] SCAN OF THE CHEST, ABDOMEN, AND PELVIS WITHOUT IV CONTRAST CLINICAL HISTORY: Atypical chest pain. Dyspnea. Generalized abdominal pain. Lymphoma. COMPARISON STUDY: CT scan of the chest, abdomen, and pelvis dated 01/20/2020. PET/CT dated 01/28/2020. TECHNIQUE: Unenhanced CT scan of the chest, abdomen, and pelvis was performed from the thoracic inlet to the proximal femora. Images are reviewed in the axial, sagittal, and coronal planes. IV contrast was not administered as per the referring clinician. Note that the examination was performed in significantly suboptimal fashion without oral and IV contrast. A dose lowering technique was utilized adhering to the principles of ALARA. CT DOSE: 1518.46 mGy.cm FINDINGS: CHEST: Thyroid: Imaged portions of the thyroid gland are normal in size and attenuation. Thoracic aorta: There is aneurysmal dilatation of the ascending thoracic aorta which measures 5.2 cm in diameter. The remainder of the thoracic aorta is normal in caliber. The arch demonstrates standard 3-vessel anatomy. Heart: A left internal jugular central venous infusion port is in place. The heart is normal in size and without pericardial effusion. The coronary arteries are densely calcified. Lungs and pleural spaces: There are small pleural effusions, right larger than left with associated atelectasis. There is no airspace consolidation typical for pneumonia. The trachea and central airways are clear. There are bilateral extrapleural lymph nodes (axial images #30 on the left and axial image #51 on the right). Mediastinum: There is mediastinal lymphadenopathy. A subcarinal node on image #99 measures 3.5 x 2.0 cm. There are enlarged internal mammary nodes. The largest is on the left measuring 1.9 x 1.2 cm seen on image #152. Abnormal soft tissue posterior to the descending thoracic aorta is similar to 180 and measures 3.0 cm. Lisandra: Clear. Axillae: There are numerous mildly enlarged axillary lymph nodes. The largest is on the left and measures 2.5 x 1.6 cm as seen on image #66. Bony thorax: The skeletal structures are osteopenic. Arthritic change is seen in the shoulders. No lytic or blastic lesions are identified. ABDOMEN AND PELVIS: Liver: The unenhanced liver is normal in size, contour, and attenuation. There is no intra- or extrahepatic biliary ductal dilatation. Gallbladder: There is nonspecific gallbladder wall thickening and pericholecystic fluid. Spleen: Normal in size and attenuation, measuring 12.1 cm in length. Pancreas: The unenhanced pancreas is grossly unremarkable and displaced anteriorly by the large retroperitoneal mass/shazia aggregate. Adrenal glands: Unremarkable. Kidneys: The unenhanced kidneys are normal in size. There is moderate bilateral hydroureteronephrosis, unchanged from previous. No renal calculi are identified. There is no evidence of contour deforming mass lesion. Abdominal vasculature: The abdominal aorta is normal in course and caliber noting mild atherosclerotic calcification. Stomach and bowel: There is a moderate hiatal hernia. There is moderate colonic diverticulosis without CT evidence of acute diverticulitis. No bowel obstruction is seen. Several small bowel loops are displaced by the large mass lesion. The appendix is well-visualized and normal. Peritoneum: There is trace abdominopelvic ascites. No intraperitoneal free air is seen. There is a fat-containing umbilical hernia. Lymphadenopathy: There is a large retroperitoneal mass lesion encasing the a bdominal aorta, the IVC, and both ureters. This also closely abuts the iliopsoas musculature. The mass measures approximately 20 x 11 x 14 cm. A large central pelvic shazia mass on image #328 measures approximately 11 x 8 cm. Upper abdominal, retrocrural, cardiophrenic, pelvic sidewall, and mesenteric lymphadenopathy are again noted. Pelvic viscera: Evaluation of the pelvis is degraded by streak artifact from a right hip arthroplasty. Bladder wall thickening is similar to previous. The prostate gland is mildly enlarged and heterogeneous. Skeletal structures: The skeletal structures are osteopenic. No lytic or blastic lesions are seen. There is mild lumbosacral spondylosis. A right hip arthr oplasty is in place. Soft tissues: There is body wall edema. IMPRESSION: 1. Significantly suboptimal examination without oral and IV contrast. 2. There are small pleural effusions, right larger than left. These have significantly increased from 01/28/2020. 3. There is no airspace consolidation typical for pneumonia. 4. Moderate hiatal hernia. 5. Extensive lymphadenopathy throughout the chest, abdomen, and pelvis as above. This has progressed as compared to the 01/28/2020 PET/CT. 6. The large retroperitoneal mass/shazia aggregate appears increased in size from previous. This encases the abdominal aorta, IVC, and both ureters. 7. Moderate bilateral hydroureteronephrosis is similar to previous and related to ureteral obstruction from the retroperitoneal mass. 8. Trace abdominopelvic ascites. 9. Gallbladder wall thickening is nonspecific. The gallbladder is not distended and no calcified stones identified. If there is clinical concern for acute cholecystitis a right upper quadrant ultrasound should be considered. 10. There is no bowel obstruction. 11. Body wall edema. 12. Additional findings as above. ACT 112: Negative or not required by law. Electronically signed by: Zeeshan Hull M.D. 02/27/2020 4:28 PM Dictated: 02/27/20 160 Transcribed: 02/27/20 160 ECG Data Indication: + SOB/dyspnea Rate (beats per minute): 88 Rhythm: + normal sinus ECG Intervals/blocks: + Normal QRS, + Normal NC and + Normal QT-c ECG ST segments: + Normal ST segments MDM Narrative 1430: The patient was evaluated in room A2. A complete history and physical exam was performed. Cardiac monitoring: An order was placed for continuous cardiac monitoring. The monitor shows a rate of 90 with sinus rhythm 1530: Vital signs stable. Patient has acute kidney injury with his creatinine being elevated at 2.18, his baseline appears to be less than 1.5. Given this elevated creatinine, we will not be able obtain CTs with contrast and we will conduct them without contrast. 1700: Vital signs stable. CT imaging shows an increased size of his masses. There is stable obstruction of his ureters causing hydroureteronephrosis due to the large retroperitoneal mass. We are unable to rule out PE at this time due to CTA not being available due to the patient's elevated creatinine. Will conduct a d-dimer test and if elevated plan on anticoagulation. IV fluids started for the patient's acute kidney injury. I did discuss with Dr. Mcmanus [facility] hospitalist who agrees to the admission and he agrees that the patient should be anticoagulated if his d-dimer is elevated. Both Dr. Mcmanus and I agree that heparin would be the ideal choice for the patient's anticoagulations given his acute kidney injury. 1758: Vital signs stable. Patient's d-dimer significantly elevated. Patient will be started on heparin as previously discussed with the hospitalist team. Impression & Plan Acute kidney injury, B-cell lymphoma, D-dimer, elevated Discharge Plan Visit Data Chief Complaint: Shortness of Breath/Dyspnea Stated Complaint: SHORT OF BREATH ED Provider: Tyson Knox Discharge Problem: Acute kidney injury, B-cell lymphoma, D-dimer, elevated Forms Stand Alone Forms: [facility] Prescriptions Prescriptions: No Action carvedilol 25 mg tablet 25 mg PO DAILY RF: 0 amlodipine 5 mg tablet 5 mg PO DAILY RF: 0 losartan 100 mg tablet 100 mg PO DAILY RF: 0 Multivitamin 50 Plus Tablet 1 tab PO DAILY RF: 0 allopurinol 300 mg tablet 300 mg PO DAILY Qty: 30 RF: 0 lorazepam 0.5 mg tablet 0.5 mg PO BID PRN (Reason: anxiety) Qty: 14 RF: 0 Cbd Oil Capsules 650 mg PO DIRECTED PRN (Reason: Pain) RF: 0 Referrals Referrals: JAYCE JUAREZ PA [Primary Care Provider] -
--- NOTE | 2020-02-27 16:23 | Electrocardiogram Report ---
Test Reason : Blood Pressure : / mmHG Vent. Rate : 088 BPM Atrial Rate : 088 BPM P-R Int : 160 ms QRS Dur : 094 ms QT Int : 376 ms P-R-T Axes : 013 -12 022 degrees QTc Int : 454 ms Normal sinus rhythm Borderline Criteria for Old Inferior infarct Abnormal ECG When compared with ECG of 22-JAN-2020 07:05, Borderline Criteria for Inferior infarct now present Confirmed by Edil Crandall ([id number]) on 02/27/2020 4:22:45 PM Referred By: REFERRED SELF Confirmed By:Edil Crandall
--- NOTE | 2020-02-27 16:30 | CT Scan Report ---
CT SCAN OF THE CHEST, ABDOMEN, AND PELVIS WITHOUT IV CONTRAST CLINICAL HISTORY: Atypical chest pain. Dyspnea. Generalized abdominal pain. Lymphoma. COMPARISON STUDY: CT scan of the chest, abdomen, and pelvis dated 01/20/2020. PET/CT dated 01/28/2020. TECHNIQUE: Unenhanced CT scan of the chest, abdomen, and pelvis was performed from the thoracic inlet to the proximal femora. Images are reviewed in the axial, sagittal, and coronal planes. IV contrast was not administered as per the referring clinician. Note that the examination was performed in signi ficantly suboptimal fashion without oral and IV contrast. A dose lowering technique was utilized adh ering to the principles of ALARA. CT DOSE: 1518.46 mGy.cm FINDINGS: CHEST: Thyroid: Imaged portions of the thyroid gland are normal in size and attenuation. Thoracic aorta: There is aneurysmal dilatation of the ascending thoracic aorta which measures 5.2 cm in diameter. The remainder of the thoracic aorta is normal in caliber. The arch demonstrates standard 3-vessel anatomy. Heart: A left internal jugular central venous infusion port is in place. The heart is normal in size and without pericardial effusion. The coronary arteries are densely calcified. Lungs and pleural spaces: There are small pleural effusions, right larger than left with associated a telectasis. There is no airspace consolidation typical for pneumonia. The trachea and central airways are clear. There are bilateral extrapleural lymph nodes (axial images #30 on the left and axial imag e #51 on the right). Mediastinum: There is mediastinal lymphadenopathy. A subcarinal node on image #99 measures 3.5 x 2.0 cm. There are enlarged internal mammary nodes. The largest is on the left measuring 1.9 x 1.2 cm seen on image #152. Abnormal soft tissue posterior to the descending thoracic aorta is similar to 180 and measures 3.0 cm. Lisandra: Clear. Axillae: There are numerous mildly enlarged axillary lymph nodes. The largest is on the left and dennis ures 2.5 x 1.6 cm as seen on image #66. Bony thorax: The skeletal structures are osteopenic. Arthritic change is seen in the shoulders. No ly tic or blastic lesions are identified. ABDOMEN AND PELVIS: Liver: The unenhanced liver is normal in size, contour, and attenuation. There is no intra- or extrah epatic biliary ductal dilatation. Gallbladder: There is nonspecific gallbladder wall thickening and pericholecystic fluid. Spleen: Normal in size and attenuation, measuring 12.1 cm in length. Pancreas: The unenhanced pancreas is grossly unremarkable and displaced anteriorly by the large retro peritoneal mass/shazia aggregate. Adrenal glands: Unremarkable. Kidneys: The unenhanced kidneys are normal in size. There is moderate bilateral hydroureteronephrosis , unchanged from previous. No renal calculi are identified. There is no evidence of contour deforming mass lesion. Abdominal vasculature: The abdominal aorta is normal in course and caliber noting mild atheroscleroti c calcification. Stomach and bowel: There is a moderate hiatal hernia. There is moderate colonic diverticulosis withou t CT evidence of acute diverticulitis. No bowel obstruction is seen. Several small bowel loops are di splaced by the large mass lesion. The appendix is well-visualized and normal. Peritoneum: There is trace abdominopelvic ascites. No intraperitoneal free air is seen. There is a fa t-containing umbilical hernia. Lymphadenopathy: There is a large retroperitoneal mass lesion encasing the abdominal aorta, the IVC, and both ureters. This also closely abuts the iliopsoas musculature. The mass measures approximately 20 x 11 x 14 cm. A large central pelvic shazia mass on image #328 measures approximately 11 x 8 cm. Up per abdominal, retrocrural, cardiophrenic, pelvic sidewall, and mesenteric lymphadenopathy are again noted. Pelvic viscera: Evaluation of the pelvis is degraded by streak artifact from a right hip arthroplasty . Bladder wall thickening is similar to previous. The prostate gland is mildly enlarged and heterogen eous. Skeletal structures: The skeletal structures are osteopenic. No lytic or blastic lesions are seen. Th ere is mild lumbosacral spondylosis. A right hip arthroplasty is in place. Soft tissues: There is body wall edema. IMPRESSION: 1. Significantly suboptimal examination without oral and IV contrast. 2. There are small pleural effusions, right larger than left. These have significantly increased from 01/28/2020. 3. There is no airspace consolidation typical for pneumonia. 4. Moderate hiatal hernia. 5. Extensive lymphadenopathy throughout the chest, abdomen, and pelvis as above. This has progressed as compared to the 01/28/2020 PET/CT. 6. The large retroperitoneal mass/hsazia aggregate appears increased in size from previous. This encas es the abdominal aorta, IVC, and both ureters. 7. Moderate bilateral hydroureteronephrosis is similar to previous and related to ureteral obstructio n from the retroperitoneal mass. 8. Trace abdominopelvic ascites. 9. Gallbladder wall thickening is nonspecific. The gallbladder is not distended and no calcified ston es identified. If there is clinical concern for acute cholecystitis a right upper quadrant ultrasound should be considered. 10. There is no bowel obstruction. 11. Body wall edema. 12. Additional findings as above. ACT 112: Negative or not required by law. Electronically signed by: Zeeshan Hull M.D. 02/27/2020 4:28 PM
[2020-02-27 17:22] LABS: D Dimer 4090 ug/L FEU (0-500)
--- NOTE | 2020-02-27 17:40 | History & Physical Report ---
Date of Service February 27, 2020 Assessment & Plan (1) D-dimer, elevated: With shortness of breath and chest pain concern for pulmonary embolism is undertaken. The patient however cannot have a CT angiogram due to creatinine of 2.18. Bilateral lower extremity Dopplers will be undertaken and patient will be run on intravenous heparin with hopes that we can improve his creatinine by 02/27. If he cannot improve his creatinine by 02/27. A VQ scan has been ordered. If it does improve we can cancel the VQ scan and do a CT angiogram (2) B-cell lymphoma: biopsy shows mantle cell lymphoma patient feels he has had return of his initial symptoms with peripheral swelling and some B type symptoms. Patient be hydrated consulting Dr. Knowles meeting suggests very little improvement of his lymphoma with concern for impingement on internal organs vessels and nerves CT chest abdomen pelvis 02/27/2020 IMPRESSION: small pleural effusions, right larger than left. These have significantly increased from 01/28/2020. Extensive lymphadenopathy throughout the chest, abdomen, and pelvis. This has progressed as compared to the 01/28/2020 PET/CT. The large retroperitoneal mass/shazia aggregate appears increased in size from previous. This encases the abdominal aorta, IVC, and both ureters. Moderate bilateral hydroureteronephrosis is similar to previous and related to ureteral obstruction from the retroperitoneal mass. Trace abdominopelvic ascites.. There is no bowel obstruction. (3) Hypertension: For hypertension the patient is maintained on carvedilol losartan and amlodipine (4) Ascending aortic aneurysm: This patient has an ascending aortic aneurysm noted to be 5 cm on previous imaging of the chest. Is below the typical 5.5 cm worrisome area but needs watching. Its direct size was not commented on this most recent CT scan (5) Acute kidney injury: Concerns for acute kidney injury could be from dehydration however concern would be is from extrinsic compression of mass on his bilateral ureters. If his creatinine does not improve with hydration consideration for urology consultation for stenting could be considered (6) DVT prophylaxis: Patient is on full dose heparin drip Patient is a full code History of Present Illness Primary Care Provider: JAYCE JUAREZ 64-year-old male with a history of B cell lymphoma on active immunotherapy patient of Dr. London presents emergency department for shortness of breath. Patient reports he has been also having chest pressure shortness of breath and epigastric pain for last 2 days. He also reports palpitations. He has had return of his lower extremity edema early satiety decreased energy insomnia body aches left arm weakness he states he called Dr. London's office who told him to come to the emergency department today. Patient is concerned that he had initial mild response to his chemotherapeutic treatment and now is worse in the return was baseline Allergies Allergy/AdvReac Type Severity Reaction Status Date / Time No Known Allergies Allergy Verified 02/27/20 15:06 Home Medications Home Medications Medication Instructions Recorded Confirmed Type Multivitamin 50 Plus 1 tab PO DAILY 01/16/20 02/27/20 History amlodipine 5 mg PO DAILY 01/16/20 02/27/20 History carvedilol 25 mg PO DAILY 01/16/20 02/27/20 History losartan 100 mg PO DAILY 01/16/20 02/27/20 History allopurinol 300 mg PO DAILY #30 tab 01/23/20 02/27/20 Rx lorazepam 0.5 mg PO BID PRN #14 tab 01/23/20 02/27/20 Rx Cbd Oil Capsules 650 mg PO DIRECTED PRN 02/27/20 02/27/20 History Past Med/Surg History Family History Other No known health problems Social History Preferred Language: Occitan 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 Ability: Effective Biomedical Engineering Aide Required: No Beliefs That Will Affect Care: None marital status: Current Living Situation: Spouse Feels Safe at Home: Yes Smoking Status: Never smoker Hx Alcohol Use: Yes Alcohol type: beer and hard liquor Hx Substance Use: Yes substance use type: marijuana Last Used Substance: Days (ago) Last Used Substance Other:: a week ago Review of Systems Review of Systems: Mild distress and fatigue no headache, blurry or double vision no speech or swallowing issues intermittent sharp stabbing positional chest pain with some palpitations no pressure sensations Marked dyspnea on exertion worsened than previous no abdominal pain, nausea or vomiting, loss of appetite early satiety and constipation no dysuria, hematuria or frequency fact decreased urine output no focal joint pain or swelling left arm weakness 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 Vital signs as documented. Head exam is normocephalic atraumatic no scleral icterus Neck is without JVD, thyromegaly, or carotid bruits. Does have some supraclavicular lymphadenopathy Lungs are clear but diminished at the bases Cardiac exam, Rhythm is regular.. No murmurs, rubs or gallops. Abdominal exam reveals normal bowel sounds, soft overall patient feels tender and full Extremities are bilaterally mild to moderately edematous and both pedal pulses are normal. Neurologic exam is alert and oriented, no focal loss of strength or sensation (subjectively claims his left shoulder is weak) Skin is without bruises or rashes Psychologically is without concerns for anxiety or depression Results & Data Results & Data ([facility]) Vital Signs (Past 12 Hours) Vital Signs Temp Pulse Pulse Resp BP BP Pulse Ox 02/27/20 16:53 100 H 20 114/74 92 02/27/20 14:41 94 02/27/20 13:57 98.4 F 88 20 105/69 93 PG Care Time/CCT Total # of Minutes Spent Total Time Spent with Patient: Total time spent is greater than 50% in coordination of care (as documented) at patient's floor/unit and/or counseling patient: Coding Level of Care Code 29701 Initial Inpt Care Lvl 3 Diagnoses D-dimer, elevated R79.89 B-cell lymphoma C85.10 Hypertension I10 Ascending aortic aneurysm I71.2 Acute kidney injury N17.9 DVT prophylaxis Z29.9
[2020-02-27] MEDS ORDERED: HEPARIN SOD (PORCINE) 1000 UNIT/ML 10 ML VIAL ONE (18:14)
[2020-02-27] MEDS: HEPARIN SODIUM/DEXTROSE 25,000 UNITS/500 ML BAG IV SCH (18:18)
[2020-02-27] MEDS ORDERED: POLYETHYLENE (MIRALAX) 17 GM PACK PO PRN (19:43)
[2020-02-27] MEDS ORDERED: HEPARIN SODIUM/DEXTROSE 25,000 UNITS/500 ML BAG IV SCH (19:43)
[2020-02-27] MEDS ORDERED: ONDANSETRON INJ 2 MG/ML 2 ML VIAL IV PRN (19:43)
[2020-02-27] MEDS ORDERED: ALUMINUM/MAGNESIUM SUSP 30 ML UDC PO PRN (19:43)
[2020-02-27] MEDS ORDERED: ACETAMINOPHEN 325 MG TAB PO PRN (19:43)
[2020-02-27] MEDS: SODIUM CHLORIDE 0.9% 1000ML 1,000 ML IV SCH (21:14)
[2020-02-27] MEDS: LORazepam 0.5 MG TAB PO PRN (22:28)
[2020-02-27] MEDS ORDERED: PNEUMOCOCCAL POLYSACCHARIDES 25 MCG/0.5 ML VIAL/SYR IM ONE (23:38)
[2020-02-27] MEDS ORDERED: PNEUMOCOCCAL ADMINISTRATION CHARGE ONE (23:38)
[2020-02-28 00:46] LABS: Partial Thromboplastin Ratio 2.7
[2020-02-28 00:52] LABS: Partial Thromboplastin Time 74.6 Seconds (21.0-31.0)
[2020-02-28 07:13] LABS: Hematocrit (blood only) 29.1 % (42-52); Hemoglobin 9.5 g/dL (14.0-18.0); Mean Corpuscular Hemoglobin 30.8 pg (25-34); Mean Corpuscular Hgb Conc 32.6 g/dL (32-36); Mean Corpuscular Volume 94.5 fL (80-100); Mean Platelet Volume 10.2 fL (7.4-10.4); Platelet Count 191 K/uL (130-400); RDW Coefficient of Variation 14.1 % (11.5-14.5); RDW Standard Deviation 48.2 fL (36.4-46.3); Red Blood Count 3.08 M/uL (4.7-6.1); White Blood Count 4.24 K/uL (4.8-10.8)
[2020-02-28] MEDS: SODIUM CHLORIDE 0.9% 1000ML 1,000 ML IV SCH (07:28)
[2020-02-28 07:34] LABS: Partial Thromboplastin Ratio 2.1
[2020-02-28 07:43] LABS: BUN Creatinine Ratio 14.4 (10-20); Calcium 7.7 mg/dl (8.5-10.1); Creatinine Clr Calc Pharmacy 40.8 ml/min; Est GFR (African American) 35.7; Est GFR (Non-African American) 30.8; Potassium 4.3 mmol/L (3.5-5.1)
[2020-02-28 07:45] LABS: Partial Thromboplastin Time 59.4 Seconds (21.0-31.0)
[2020-02-28] MEDS ORDERED: allopurinoL 300 MG TAB PO SCH (09:00)
[2020-02-28] MEDS ORDERED: AMLODIPINE BESYLATE 5 MG TAB PO SCH (09:00)
[2020-02-28] MEDS ORDERED: carvediloL 25 MG TAB PO SCH (09:00)
[2020-02-28] MEDS ORDERED: LOSARTAN POTASSIUM 50 MG TAB PO SCH (09:00)
[2020-02-28] MEDS ORDERED: CEROVITE ADV FORMULA TAB PO SCH (09:00)
[2020-02-28] MEDS: LORazepam 0.5 MG TAB PO PRN ×2 (10:33→19:56)
--- NOTE | 2020-02-28 11:13 | Ultrasound Report ---
BILATERAL LOWER EXTREMITY VENOUS DOPPLER CLINICAL HISTORY: lymphoma, b/l LE edema; eval DVT COMPARISON STUDY: No previous studies for comparison. TECHNIQUE: Sonography of the deep venous system of the bilateral lower extremities was performed. Co mpression and augmentation were evaluated. FINDINGS: The bilateral common femoral, superficial femoral and popliteal veins were compressible. A ugmentation was normal. Flow was shown within the deep calf vessels. Bilateral lower extremity edema was noted. IMPRESSION: No evidence of deep venous thrombus within the bilateral lower extremities. ACT 112: Negative or not required by law. Electronically signed by: Luis Leon M.D. 02/28/2020 11:12 AM
[2020-02-28] MEDS: HEPARIN SODIUM/DEXTROSE 25,000 UNITS/500 ML BAG IV SCH ×2 (11:37→18:47)
[2020-02-28] MEDS ORDERED: FUROSEMIDE 20 MG in SYRINGE 0 ML IV ONE (12:15)
--- NOTE | 2020-02-28 12:41 | Consultation Report ---
DATE OF CONSULTATION: 02/28/2020 REASON FOR CONSULTATION: Progressive mantle cell lymphoma. HISTORY OF PRESENT ILLNESS: The patient is a very pleasant 64-year-old gentleman currently under my care with a bulky high risk mantle cell lymphoma. The patient was instructed by my office to come to the Emergency Room as he had become progressively more short of breath. The patient reports having increased chest pressure and shortness of breath with associated epigastric pain over the past couple of days. Unfortunately, on presentation, his renal function was markedly abnormal and therefore a contrasted CTA of the chest could not rule out pulmonary embolism. Thus, he was empirically started on anticoagulation and plans are underway for a VQ scan this morning. However, the radiologist was able to discern disease progression within all previously identified lymph node groups. This gentleman received initial course of bendamustine and rituximab which completed on 02/02/2020. Shortly thereafter, his liver transaminases arose precipitously. Initially, he seemed to be doing relatively well, but unfortunately over the past 3-4 days leading up to admission, clearly there is evidence he is progressing. The retroperitoneal mass is now obstructing the one ureter, thus resulting in obstructive uropathy and renal failure. Diagnostic biopsy was carried out on 01/23/2020 consistent with mantle cell lymphoma pleomorphic subtype. FISH studies revealed a translocation (11;14) and 11q (THEODORA) gene deletion consistent with the diagnosis. MYC amplification was also identified. Staging bone marrow biopsy and aspiration was performed on 01/27/2020 revealing a 20% infiltration of the lymphoma. Thus, he suffers from high risk stage IV disease. I informally contacted Dr. Kush Jasso at [facility] in [place] about the patient's case and they have agreed to proceed with transfer for more aggressive therapy, perhaps Hyper-CVAD. PAST MEDICAL HISTORY: Significant hypertension and ascending aortic aneurysm. PAST SURGICAL HISTORY: Significant for right hip arthroplasty. MEDICATIONS: CBD oil capsules 650 mg p.o. as directed p.r.n., lorazepam 0.5 mg p.o. b.i.d. p.r.n., allopurinol 300 mg p.o. daily, losartan 100 mg p.o. daily, carvedilol 25 mg p.o. daily, amlodipine 5 mg p.o. daily, multivitamin 1 tablet p.o. daily. ALLERGIES: No known drug allergies. 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 He continued to work part-time until diagnosed as positive for beer and hard liquor consumption. He also admits to marijuana use. FAMILY HISTORY: No family history of lymphoproliferative disease. REVIEW OF SYSTEMS: CONSTITUTIONAL: As per HPI, most notably for shortness of breath and dyspnea on exertion, chest pressure, epigastric pain. No fevers, chills or sweats. SKIN: No rashes or lesions. No history of dermatoses. HEENT: Negative for headaches, lightheadedness or dizziness. No acute visual or hearing deficits. No sinus symptoms, sore throat or dysphagia. LYMPH: Recent diagnosis of high-grade mantle cell lymphoma. CARDIAC: Negative for coronary artery disease, has a relatively large aortic root aneurysm 5 cm noted on chest CT, no angina or palpitations. PULMONARY: Negative for COPD. He is not short of breath, dyspneic or orthopneic. No cough or hemoptysis. GASTROINTESTINAL: He denies any [place] abdominal pain. He is not nauseated. No diarrhea or constipation, no hematochezia or melena stools. GENITOURINARY: No hematuria or dysuria, no urinary incontinence. PSYCHIATRIC: Positive for anxiety, negative for depression or psychoses. ENDOCRINE: Negative for diabetes or thyroid disease. NEUROLOGIC: Negative for seizure, stroke, or migraine headache. HEMATOLOGIC: Positive for borderline normocytic normochromic anemia. PHYSICAL EXAMINATION: GENERAL: Very pleasant 64-year-old gentleman, awake, alert and appropriate, in no acute distress. VITAL SIGNS: Temperature 36.9, pulse 85, respiratory rate 20, blood pressure 120/77. SKIN: Warm, dry, noncyanotic without petechia, rash or ecchymosis. HEENT: Head is atraumatic, normocephalic. Eyes: PERRLA, EOMI. Sclerae nonicteric. No conjunctival injection. Nares patent without rhinorrhea or discharge. Throat clear. Tongue lesion. No buccal lesions or ulcerations noted. Dentition in good repair. NECK: Supple without JVD or thyromegaly. LYMPHATICS: No cervical or supraclavicular or axillary lymphadenopathy. HEART: Regular rate and rhythm. No clicks, rubs, murmurs or gallops. LUNGS: Clear to auscultation bilaterally. ABDOMEN: Soft, nontender, nondistended. Bowel sounds are hypoactive. No rigidity or guarding. EXTREMITIES: Trace peripheral edema bilateral lower extremities. Pulses and strength are equal otherwise. NEUROLOGICALLY: He is awake, alert and oriented x3. Cranial nerves are grossly intact. LABORATORY DATA: WBC count 4240, hemoglobin 9.5, platelet count 191,000. His absolute neutrophil count is 3470. Patient presently on heparin. PTT 59.4 seconds. D-dimer was markedly elevated, diagnosis 4090. Sodium 137, potassium 4.3, chloride 110, carbon dioxide 24, creatinine 2.17, BUN 31, AST 39, ALT 51, alkaline phosphatase 159. Albumin 3.1. RADIOGRAPHIC DATA: CT scan of the abdomen and pelvis without IV contrast. The retroperitoneal mass now measures 20 x 11 x 14 cm and a large central pelvic shazia mass measures 11 x 8 cm including extensive lymphadenopathy throughout the chest, abdomen and pelvis as above. Definite progression as compared to PET scan from 01/28/2020. Again, CTA of the chest was aborted because of the patient's renal function planning to obtain a VQ scan prior to transfer. IMPRESSION: 1. Possible pulmonary embolism/D-dimer. 2. Progressive mantle cell lymphoma (high risk). 3. Acute renal injury attributable to obstructive uropathy. In summary, the patient is a very pleasant unfortunate 64-year-old gentleman diagnosed with high risk bulky mantle cell lymphoma. Diagnosis was established in late December and he began rituximab and bendamustine, which completed on 02/02/2020. Shortly thereafter his transaminases aranza precipitously contour indicating further use of bendamustine. The patient seems to be doing reasonably well initially after first treatment. However, over the past several days leading up to admission had been in steady decline. Noncontrasted CT of the abdomen and pelvis clearly demonstrates disease progression and thus the need for more aggressive chemotherapy. Hyper-CVAD is one option moving forward. I spoke directly to Dr. Maisha Beckman, [facility] in [place] outlining the patient's case and current predicament. She has accepted the patient in transfer to begin aggressive therapy immediately. I informed Dr. Beckman, we would obtain a VQ scan to determine if the patient should remain on anticoagulation. Upon transfer, he will need a Urology consult for a stent placement to alleviate the obstruction attributable to progressing retroperitoneal and intrapelvic masses. Discussed the appropriateness of transfer directly with the patient. He is in agreeance. Discussed further with Dr. Kush Solo the managing hospitalist, and he is also in agreeance of the patient's transfer. I will make arrangements to see the patient in followup once he completes intensive therapy in [place]. Thank you very much for allowing me to participate in his care. If there are any questions or concerns, feel free to contact me at any time. GERMAN
--- NOTE | 2020-02-28 18:13 | Nuclear Medicine Report ---
NM pul perfusion CLINICAL HISTORY: dyspnea; lymphoma; assess probability for PE COMPARISON STUDY: Chest CT and chest radiograph February 27, 2020. TECHNIQUE: 5.4 mCi of technetium 99m MAA was injected IV at 5:30 PM on February 28, 2020. Immediately foll owing injection, imaging of the chest was performed in multiple projections. FINDINGS: Expected radiotracer distribution is noted. There are no defects to strongly suggest pulmon lydia embolus. This study is considered low probability for pulmonary embolus. IMPRESSION: Low probability for pulmonary embolus. ACT 112: Negative or not required by law. Electronically signed by: Luis Leon M.D. 02/28/2020 6:11 PM
--- NOTE | 2020-02-28 19:26 | Discharge Summary ---
Date of Service date of admission - February 27, 2020 date of discharge - February 28, 2020 Admission HPI Per Admitting Provider 64-year-old male with a history of B-cell lymphoma (Mantle cell lymphoma), on active immunotherapy and a patient of Dr. Pérez Peacock at the [facility], presents to the emergency department with shortness of breath. Patient reports he has also been having chest pressure and epigastric pain for the last 2 days. He also reports palpitations. He has had return of his lower extremity edema, early satiety, decreased energy, insomnia, body aches and left arm weakness. He states he called Dr. Peacock's office who told him to come to the emergency department today. Principal Diagnosis 1. mantle cell lymphoma 2. acute kidney injury 3. acute hypoxic respiratory failure Discharge Exam Constitutional + acute distress (gets dyspneic with minimal movement in bed, mild tachypnea ) ENMT external ear and nose normal, oropharynx normal Respiratory + retractions (mild, particularly if he moves in bed) and + tachypneic Auscultation: lungs clear to auscultation bilaterally and + diminished lung sounds (bases); no crackles and no wheezes Cardiovascular Rate/Rhythm: regular rate and regular rhythm Heart Sounds: normal S1 and normal S2; no murmur Vessels: + JVD, posterior tibial pulses present and dorsalis pedis pulses pres ent Extremities: + edema (2+ b/l ) Gastrointestinal (Abdomen) Inspection/Auscultation: + abdomen distended (with body wall edema ), normal bowel sounds and + abdominal edema Percussion/Palpation: abdomen nontender, no guarding and no hepatosplenomegaly Skin + pallor Psychiatric A+Ox3, euthymic affect Genitourinary + scrotal swelling (severe) Discharge Data Allergies Allergy/AdvReac Type Severity Reaction Status Date / Time No Known Allergies Allergy Verified 02/27/20 15:06 Consultations Oncology - Pérez Peacock DO Ordered Studies 02/27/20 15:24 CT abd pelvis wo con Stat CT chest wo con Stat IMPRESSION: 1. Significantly suboptimal examination without oral and IV contrast. 2. There are small pleural effusions, right larger than left. These have significantly increased from 01/28/2020. 3. There is no airspace consolidation typical for pneumonia. 4. Moderate hiatal hernia. 5. Extensive lymphadenopathy throughout the chest, abdomen, and pelvis as above. This has progressed as compared to the 01/28/2020 PET/CT. 6. The large retroperitoneal mass/shazia aggregate appears increased in size from previous. This encases the abdominal aorta, IVC, and both ureters. 7. Moderate bilateral hydroureteronephrosis is similar to previous and related to ureteral obstruction from the retroperitoneal mass. 8. Trace abdominopelvic ascites. 9. Gallbladder wall thickening is nonspecific. The gallbladder is not distended and no calcified stones identified. If there is clinical concern for acute cholecystitis a right upper quadrant ultrasound should be considered. 10. There is no bowel obstruction. 11. Body wall edema. 02/28/20 09:25 US venous doppler LE BI Urgent - no evidence of DVT bilateral legs. 02/28/20 Ventilation/Perfusion scan (VQ) - low probability for PE. COVID-19 PCR negative Hospital Course (1) Acute respiratory failure with hypoxia: Patient presented with a chief complaint of dyspnea. Initially there was concern for PE given his extensive lymphoma. He was placed on heparin infusion empirically while awaiting testing. Due to acute kidney injury CTA chest was deferred. Thus, VQ scan was obtained showing low probability for PE. LE venous dopplers were negative for DVT. Ultimately heparin infusion was stopped. Non-contrast chest CT showed bilateral pleural effusions and worsening lymphadenopathy. IV lasix was administered and he had good diuresis with such. Thus, some of his dyspnea could be from volume overload/pulmonary edema/effusions. If renal function improves at [facility] could consider CTA chest to more definitively rule out PE. At time of discharge to [facility] O2 sats were stable on NC O2. (2) B-cell lymphoma: Mantle Cell Lymphoma type. Initial diagnosis 12/2019. Completion of initial therapy early January, (bendamustine and rituximab). CT chest/abd/pelvis this admission shows extensive, progressive disease. Followed by Dr Pérez Peacock, [facility]. (3) Acute kidney injury: Creatinine upon admission was 2.1. Creatinine baseline is 1 per records. On February 19 patient's creatinine started to rise; was 1.4 at that time. Much of his acute kidney injury is likely obstructive in nature as CT shows extrinsic compression of both ureters from his lymphoma. Early discussions were held with urology at [facility] about stenting his ureters during this hospitalization. I cannot rule out hypervolemia also contributing to acute kidney injury. Will likely need urology and nephrology consultations upon transfer to [facility]. Recommend holding losartan upon transfer. (4) Hydronephrosis due to obstruction of ureter: Bilateral as seen on CT abd/pelvis. See above in "acute kidney injury." (5) Hypertension: Continue coreg and amlodipine; hold ARB due to acute kidney injury. (6) Ascending aortic aneurysm: 5cm in size. No evidence of dissection or rupture this admission. (7) Scrotal edema: Severe. Suspect much of this is due to IVC compression from his lymphoma as seen on CT as well as some element of hypervolemia. 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 Discharge hemoglobin was 9.5. I would like to thank Dr Maisha Beckman and the medical/oncology teams at [facility] for accepting Mr Reece in transfer for ongoing care. Total Time Total Time Spent Total Time Spent (In Minutes): 60 Total Time Includes: Examination of the Patient, Discharge Planning, Medication Reconciliation and 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 With Other Providers Discharge Plan Discharge Items Patient Disposition: Transfer Acute Care Hospital Reason For Visit: ACUTE KIDNEY INJURY, MANTLE CELL LYMPHOMA Discharge Diagnosis: 1. advancing mantle cell lymphoma 2. acute kidney injury - likely obstructive due to lymphoma compressing the bilateral ureters 3. shortness of breath - likely multifactorial - pleural effusions, suspected pulmonary edema, lymphadenopathy; VQ scan low probability for PE 4. COVID-19 PCR negative Activity: Resume your previous activity Non-emergency contact: Primary Care Provider and Oncologist Call non-emergency contact if: you have any medication questions Follow-up/Referrals: JAYCE JUAREZ PA [Primary Care Provider] - Diet: Heart Healthy Addtl Attending Provider Instructions: To be determined after hospitalization at [facility] in [place] Pending Studies at Discharge: Yes Studies:: blood cultures Stand-Alone Forms: My [facility] Skilled Items Patient informed of condition?: Yes DNR: No Discharge Level of Care: Other Communicable Disease: No Discharge Prognosis: Stable Lines: Saline Lock Urinary Catheter: No Medications and DC Order Prescriptions: Continued carvedilol 25 mg tablet 25 mg PO DAILY RF: 0 amlodipine 5 mg tablet 5 mg PO DAILY RF: 0 Multivitamin 50 Plus Tablet 1 tab PO DAILY RF: 0 allopurinol 300 mg tablet 300 mg PO DAILY Qty: 30 RF: 0 lorazepam 0.5 mg tablet 0.5 mg PO BID PRN (Reason: anxiety) Qty: 14 RF: 0 Cbd Oil Capsules 650 mg PO DIRECTED PRN (Reason: Pain) RF: 0 Discontinued losartan 100 mg tablet 100 mg PO DAILY RF: 0 Discharge Orders: Discharge Order (Routine); Ordered 02/28/20 Ordered By: Wolfgang Solo Admission Data Admit Date/Time: 02/27/20 17:50 Attending Provider: Wolfgang Solo Admit Provider: Dima Lawrence Primary Care Provider: JAYCE JUAREZ Other Providers: Dima Lawrence ; Pérez Peacock V. Coding Level of Care Code D/C Day Management >30 mins Diagnoses Acute respiratory failure with hypoxia J96.01 B-cell lymphoma C85.10 Acute kidney injury N17.9 Hydronephrosis due to obstruction of ureter N13.2 Hypertension I10 Ascending aortic aneurysm I71.2 Scrotal edema N50.89 Anemia D64.9
[2020-02-28] MEDS ORDERED: CALCIUM CARBONATE 500 MG CHEWABLE TAB PO STA (20:58)
[2020-02-28] MEDS ORDERED: LORazepam 1 MG TAB PO STA (20:58)
== END 2020-02-28 21:36 | disposition short-term general hospital (02) ==
LOC: ED 13:36 → SUATTDRO 17:50 → 2W 17:50 → INTOOBSV 17:50 → 2W 18:40